=== PATIENT | male | born 1955 | race Caucasian/White ===

== ENCOUNTER → 2019-01-19 | Outpatient (CLI) | payer MEDICARE ==
--- NOTE | 2019-01-19 18:19 | Diagnostic Imaging Report ---
PROCEDURE: US Bilateral lower extremity arterial. TECHNIQUE: Multiple real-time grayscale images are obtained through both lower extremity arterial systems with color Doppler imaging and color Doppler spectral analysis. INDICATION: Peripheral vascular disease. FINDINGS: Predominantly biphasic waveforms throughout both lower extremity arterial systems noted with exception of some triphasic waveforms in the right common femoral and superficial femoral artery. Velocities appear to be fairly symmetric bilaterally. No significant velocity elevation or high-grade stenosis is seen. There is no occlusion. No fluid collection or mass is seen IMPRESSION: Essentially unremarkable bilateral lower extremity arterial Doppler. Dictated by: Dictated on workstation # [id number]
== END ==
LOC: RAD FS 10:24
PROVIDERS: ATTEND Physician Assistant
DX: I73.9 Peripheral vascular disease, unspecified (principal)
CPT/HCPCS: 93925

== ENCOUNTER → 2019-08-24 | Outpatient (CLI) | payer MEDICARE ==
--- NOTE | 2019-08-24 16:18 | Diagnostic Imaging Report ---
INDICATION: Epigastric pain. TIME OF EXAM: 3:32 p.m. FINDINGS: Supine radiograph of the abdomen was obtained. Bowel gas pattern is nonobstructed. No pathologic calcifications are seen. IMPRESSION: No acute abnormality is detected. Dictated by: Dictated on workstation # [id number]
== END ==
LOC: RAD FS 15:25
PROVIDERS: ATTEND Nurse Practitioner Family
DX: R10.13 Epigastric pain (principal)
CPT/HCPCS: 74018

== ENCOUNTER 2021-05-09 12:30 | Emergency (ER) | payer OTHER, MEDICARE ==
[~2021-05-09] VITALS: Ht 175.2 cm; Wt 81.0 kg
[2021-05-09 12:30] VITALS: BP 148/71
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
== END 2021-05-09 13:04 | disposition home or self-care (01) ==
LOC: ER FS 12:30 → EDUNIT# 12:30 → ER FS 13:04
DX: S01.81XA Laceration without foreign body of other part of head, initial encounter (principal); V89.2XXA Person injured in unspecified motor-vehicle accident, traffic, initial encounter
CPT/HCPCS: 99283

== ENCOUNTER → 2023-03-19 | Outpatient (CLI) | payer MEDICARE, OTHER ==
[~2023-03-19] VITALS: Ht 175.3 cm; Wt 86.4 kg
[~2023-03-19] MED LIST: LIDOCAINE 1% INJ 10 ML VIAL INJ ONE
--- NOTE | 2023-03-19 17:14 | Diagnostic Imaging Report ---
INDICATION: Left lobe thyroid nodule. PROCEDURE: The patient presents for ultrasound-guided fine-needle aspiration. The patient was brought to the procedure room and placed on the table in the supine position. Ultrasound imaging of the left neck was performed to evaluate appropriate entry site. Left neck was then prepped and draped in the usual sterile fashion. A small amount of 1% lidocaine was utilized for local anesthesia. A total of 4 passes were made into the dominant solid echogenic nodule lower pole left lobe of the thyroid utilizing 25-gauge needles and fine needle aspiration technique. Needle was removed and hemostasis was obtained. Patient tolerated the procedure well and left the department in stable condition. IMPRESSION: Successful ultrasound guided fine needle aspiration of the dominant solid nodule, left lobe of the thyroid. Pathology results are currently pending. Dictated on workstation # [id number]
--- NOTE | 2023-03-19 17:18 | Diagnostic Imaging Report ---
INDICATION: Right thyroid nodule. The patient presents for fine-needle aspiration with ultrasound guidance. The patient was brought to the procedure room and placed on the table in the supine position. Ultrasound imaging of the right neck was performed to evaluate appropriate entry site. Right neck was prepped and draped in the usual sterile fashion. A small amount 1% lidocaine was utilized for local anesthesia. A total of 4 passes were made into the dominant solid nodule right lobe of the thyroid utilizing 25-gauge needles and fine-needle aspiration technique. Needle was removed and hemostasis was obtained. Patient tolerated the procedure well and left the department in stable condition. IMPRESSION: Successful ultrasound guided fine-needle aspiration of the dominant solid nodule right lobe of the thyroid. Pathology results are currently pending. Dictated on workstation # [id number]
== END ==
LOC: RAD 14:33
PROVIDERS: ATTEND Family Medicine
DX: E04.1 Nontoxic single thyroid nodule (principal)

== ENCOUNTER → 2023-04-24 | Outpatient (CLI) | payer MEDICARE | END | disposition home or self-care (01) | LOC: PREOP 06:42 | PROVIDERS: ATTEND Surgery | DX: Z01.818 Encounter for other preprocedural examination (principal) ==

== ENCOUNTER 2023-06-20 09:06 | Emergency (ER) | payer MEDICARE, MEDICAID ==
[~2023-06-20] VITALS: Ht 175.3 cm; Wt 75.7 kg
[2023-06-20] MEDS ORDERED: FAMOTIDINE 20 MG TABLET PO STA (09:22)
--- NOTE | 2023-06-20 09:26 | ED Abdominal Pain ---
General Chief Complaint: Abdominal/GI Problems Stated Complaint: ABD PAIN Source of Information: Patient Exam Limitations: No Limitations History of Present Illness Date Seen by Provider: Jun 20, 2023 Time Seen by Provider: 09:12 Initial Comments 68-year-old male with past medical history of diabetes coming in due to abdominal pain. He also states has been constipated during the same time. This has been going on for the past month, worsening over the past couple of days. Had an episode of nonbloody nonbilious vomiting a few days ago with some mild nausea now. Eating actually seems to make the pain better sometimes. He had a bowel movement yesterday which did not really change the pain. He has never had pain like this before and denies any history of abdominal surgeries. He does have prostate issues he states and urinates frequently. He is concerned with how much he is having to urinate, so he recently started a medication that "makes him not have to pee as much". He is unsure what it is but it is [id number]. Allergies and Home Medications Allergies Coded Allergies: No Known Drug Allergies (Unverified , 05/09/21) Patient Home Medication List Home Medication List Reviewed: Yes Tamsulosin HCl (Flomax) 0.4 Mg Cap, 0.4 MG PO DAILY Prescribed by: STEVE SAEED on 06/20/23 1100 Review of Systems Review of Systems Constitutional: No fever Respiratory: No Symptoms Reported Cardiovascular: No Symptoms Reported Gastrointestinal: See HPI Genitourinary: No Symptoms Reported Musculoskeletal: no symptoms reported Skin: no symptoms reported Psychiatric/Neurological: No Symptoms Reported Endocrine: No Symptoms Reported Hematologic/Lymphatic: No Symptoms Reported All Other Systems Reviewed Negative Unless Noted: Yes Past Tcrrkgo-Vgnlih-Dgslhx Hx Patient Social History Tobacco Use?: Yes Tobacco type used: Cigars Substance use?: No Past Medical History Surgeries: No Physical Exam Vital Signs Vital Signs - First Documented 06/20/23 09:15 Temp 36.2 Pulse 81 Resp 18 B/P (MAP) 113/66 (82) O2 Delivery Room Air Capillary Refill : Height/Weight/BMI Height: '" Weight: lbs. oz. kg; 28.11 BMI Method: General Appearance: WD/WN, no apparent distress HEENT: PERRL/EOMI, normal ENT inspection, pharynx normal Neck: non-tender, full range of motion, supple, normal inspection Respiratory: chest non-tender, lungs clear, normal breath sounds, no respiratory distress, no accessory muscle use Cardiovascular: regular rate, rhythm Gastrointestinal: normal bowel sounds, soft; No distended, No guarding, No rebound; tenderness Extremities: normal range of motion, non-tender, normal inspection, no calf tenderness, normal capillary refill, pedal edema Neurologic/Psychiatric: no motor/sensory deficits, alert, normal mood/affect Skin: normal color, warm/dry Focused Exam Lactate Level 06/20/23 09:23: Lactic Acid Level 1.62 Lactic Acid Level Laboratory Tests Test 06/20/23 09:23 Lactic Acid Level 1.62 MMOL/L (0.50-2.00) Progress/Results/Core Measures Results/Orders Lab Results Laboratory Tests Test 06/20/23 09:23 06/20/23 11:12 Range/Units White Blood Count 7.7 4.3-11.0 10^3/uL Red Blood Count 4.48 4.30-5.52 10^6/uL Hemoglobin 13.3 13.3-17.7 g/dL Hematocrit 41 40-54 % Mean Corpuscular Volume 92 80-99 fL Mean Corpuscular Hemoglobin 30 25-34 pg Mean Corpuscular Hemoglobin Concent 32 32-36 g/dL Red Cell Distribution Width 13.2 10.0-14.5 % Platelet Count 253 130-400 10^3/uL Mean Platelet Volume 9.1 9.0-12.2 fL Immature Granulocyte % (Auto) 0 % Neutrophils (%) (Auto) 69 42-75 % Lymphocytes (%) (Auto) 21 12-44 % Monocytes (%) (Auto) 6 0-12 % Eosinophils (%) (Auto) 3 0-10 % Basophils (%) (Auto) 0 0-10 % Neutrophils # (Auto) 5.3 1.8-7.8 10^3/uL Lymphocytes # (Auto) 1.6 1.0-4.0 10^3/uL Monocytes # (Auto) 0.5 0.0-1.0 10^3/uL Eosinophils # (Auto) 0.2 0.0-0.3 10^3/uL Basophils # (Auto) 0.0 0.0-0.1 10^3/uL Immature Granulocyte # (Auto) 0.0 0.0-0.1 10^3/uL Prothrombin Time 13.5 12.2-14.7 SEC INR Comment 1.0 0.8-1.4 Activated Partial Thromboplast Time 29 24-35 SEC Sodium Level 138 135-145 MMOL/L Potassium Level 4.0 3.6-5.0 MMOL/L Chloride Level 100 98-107 MMOL/L Carbon Dioxide Level 27 21-32 MMOL/L Anion Gap 11 5-14 MMOL/L Blood Urea Nitrogen 9 7-18 MG/DL Creatinine 0.74 0.60-1.30 MG/DL Estimat Glomerular Filtration Rate 99 BUN/Creatinine Ratio 12 Glucose Level 194 H 70-105 MG/DL Lactic Acid Level 1.62 0.50-2.00 MMOL/L Calcium Level 9.4 8.5-10.1 MG/DL Corrected Calcium 9.6 8.5-10.1 MG/DL Magnesium Level 1.7 1.6-2.4 MG/DL Total Bilirubin 0.6 0.1-1.0 MG/DL Aspartate Amino Transf (AST/SGOT) 10 5-34 U/L Alanine Aminotransferase (ALT/SGPT) 9 0-55 U/L Alkaline Phosphatase 120 40-136 U/L C-Reactive Protein < 0.30 <0.50 MG/DL Total Protein 6.5 6.4-8.2 GM/DL Albumin 3.8 3.2-4.5 GM/DL Lipase 16 8-78 U/L Urine Color YELLOW Urine Clarity CLEAR Urine pH 6.0 5-9 Urine Specific [place] <=1.005 1.016-1.022 Urine Protein NEGATIVE NEGATIVE Urine Glucose (UA) 2+ H NEGATIVE Urine Ketones NEGATIVE NEGATIVE Urine Nitrite NEGATIVE NEGATIVE Urine Bilirubin NEGATIVE NEGATIVE Urine Urobilinogen 0.2 < = 1.0 MG/DL Urine Leukocyte Esterase NEGATIVE NEGATIVE Urine RBC (Auto) NEGATIVE NEGATIVE Urine RBC NONE /HPF Urine WBC NONE /HPF Urine Crystals NONE /LPF Urine Bacteria NEGATIVE /HPF Urine Casts NONE /LPF Urine Mucus NEGATIVE /LPF Urine Culture Indicated NO My Orders Orders - STEVE SAEED MD Ct Abdomen/Pelvis W (06/20/23 09:22) Cbc With Automated Diff (06/20/23 09:22) Comprehensive Metabolic Panel (06/20/23 09:22) Lactic Acid Analyzer (06/20/23 09:22) Lipase (06/20/23 09:22) Magnesium (06/20/23 09:22) Protime With Inr (06/20/23 09:22) Partial Thromboplastin Time (06/20/23 09:22) Ua Culture If Indicated (06/20/23 09:22) Crp Fs (06/20/23 09:22) Ed Iv/Invasive Line Start (06/20/23 09:22) Ondansetron Injection (Zofran Injectio (06/20/23 09:30) Acetaminophen Tablet (Acetaminophen Ta (06/20/23 09:30) Lidocaine 2% Viscous 15 Ml (Xylocaine Vi (06/20/23 09:30) Famotidine Tablet (Famotidine Tablet) (06/20/23 09:22) Antacid Suspension (Antacid Suspension (06/20/23 09:30) Iohexol Injection (Omnipaque 350 Mg/Ml 1 (06/20/23 10:00) Received Contrast (Hold Metformin- Contr (06/20/23 10:00) Ns (Ivpb) 100 Ml (Sodium Chloride 0.9% 1 (06/20/23 10:00) Medications Given in ED Current Medications Medications Dose Ordered Sig/Ivan Route Start Time Stop Time Status Last Admin Dose Admin Acetaminophen 1,000 mg ONCE ONCE PO 06/20/23 09:30 06/20/23 09:31 DC 06/20/23 09:30 1,000 MG Al Hydrox/Mg Hydrox/Simethicone 30 ml ONCE ONCE PO 06/20/23 09:30 06/20/23 09:31 DC 06/20/23 09:31 30 ML Iohexol 100 ml ONCE ONCE IV 06/20/23 10:00 06/20/23 10:01 DC 06/20/23 10:18 75 ML Lidocaine HCl 15 ml ONCE ONCE PO 06/20/23 09:30 06/20/23 09:31 DC 06/20/23 09:31 15 ML Ondansetron HCl 4 mg ONCE ONCE IVP 06/20/23 09:30 06/20/23 09:31 DC 06/20/23 09:30 4 MG Sodium Chloride 100 ml ONCE ONCE IV 06/20/23 10:00 06/20/23 10:01 DC 06/20/23 10:18 100 ML Vital Signs/I&O 06/20/23 09:15 Temp 36.2 Pulse 81 Resp 18 B/P (MAP) 113/66 (82) O2 Delivery Room Air Progress Progress Note : Progress Note 68-year-old male with above history coming in due to abdominal pain. ABCs were intact and vitals were stable on presentation. He has general abdominal pain, worse in the lower abdomen, but no signs of peritonitis. An IV was placed and basic labs were obtained and were significant for normal white blood cell count, normal creatinine, normal CRP, normal lactic acid, normal LFTs. CT abdomen pelvis negative for acute findings, bladder is distended even after he tried to go to the bathroom which is concerning. He does have some spinal changes as well which could be concerning for malignancy. 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 He states he does not believe he finished the treatments. I stressed that he needs to follow-up with his primary regarding this as soon as possible. In regards to his urinary retention, I am concerned he is taking aawm-oam-iaojjen medication that is likely making this worse. I will instruct him to stop this immediately. We placed a Ocasio with good urinary output. UA without infection. I will start him on Flomax and have him start with a urologist as an outpatient. Diagnostic Imaging Diagonstic Imaging: CT (abd/pelvis) Comments [facility]. [place], [place] NAME: MARIA DE JESUS DAVIS [facility] REC#: [id number] PT STATUS: REG ER : 1955 PHYSICIAN: STEVE SAEED MD ADMIT DATE: 06/20/23/ER FS Signed Date of Exam:06/20/23 CT ABDOMEN/PELVIS W EXAMINATION: CT abdomen and pelvis with intravenous contrast. TECHNIQUE: Multiple contiguous axial images were obtained through the abdomen and pelvis after the uneventful administration of intravenous contrast. All CT scans use one or more of the following dose optimizing techniques: automated exposure control, MA and/or KvP adjustment based on patient size and exam type or iterative reconstruction. HISTORY: LLQ pain, decreased bowel movements, vomiting COMPARISON: None available. FINDINGS: Lung bases: Bibasilar dependent atelectasis. Solid organs: The liver is normal without focal lesion. The gallbladder is normal. There is no biliary ductal dilation. Pancreas is normal. Spleen is normal. Adrenal glands are normal. The kidneys are normal without hydronephrosis. Bowel: The stomach and small bowel are normal without obstruction. The colon is normal. The appendix is normal. Peritoneum: There is no intraperitoneal free fluid or free air. No suspicious lymphadenopathy. Vasculature: Calcification of the aorta without aneurysm. Musculoskeletal: Heterogeneous appearance of the osseous structures. No compression fracture. Pelvis: The prostate gland is normal. There is bladder wall trabeculation. IMPRESSION: 1. No acute abnormality in the abdomen or pelvis. 2. Heterogeneous appearance of the osseous structures which is indeterminate and could be seen with osseous demineralization, neoplastic process or other metabolic disorder. Recommend correlation with patient history. Dictated by: Dictated on workstation # [id number] Dict: 06/20/23 1029 Trans: 06/20/23 1038 [id number] Interpreted by: GILDA DURHAM DO Electronically signed by: GILDA DURHAM DO 06/20/23 1038 Departure Impression Primary Impression: Urinary retention Disposition: 01 HOME, SELF-CARE Condition: Stable Departure-Patient Inst. Decision time for Depature: 11:20 Referrals: SUSHILA PONCE MD (PCP/Family) Primary Care Physician Patient Instructions: Urinary Retention (DC), How to Care for Your Ocasio Catheter, Male Add. Discharge Instructions: Your symptoms were because your bladder was full of urine and you were unable to get that out. We will start you with a new medication called tamsulosin that helps with the prostate and urinating. Please follow-up with a urologist, Dr. Champagne is the closest one to the area in [place]. His number is [phone]. You could also google any other provider you would like to see if you do not want to travel there. He also had some changes on the CT of your spine that could be cancer related. You had mentioned that you had cancer in your spine as a 21-year-old. Please follow-up with your regular doctor in regards to this, they may recommend advanced imaging to further investigate. Please stop the new vtjn-ltx-uoyuujm medicine you started for your urinary problem. We believe this is likely making the problem worse. Scripts Tamsulosin HCl (Flomax) 0.4 Mg Cap 0.4 MG PO DAILY for 30 Days, #30 CAP Prov: STEVE SAEED MD 06/20/23 STEVE SAEED MD Jun 20, 2023 09:26
[2023-06-20] MEDS ORDERED: ANTACID SUSPENSION 30 ML UDC PO ONE (09:30)
[2023-06-20] MEDS ORDERED: LIDOCAINE 2% VISCOUS 15 ML UDC PO ONE (09:30)
[2023-06-20] MEDS ORDERED: ACETAMINOPHEN 500 MG TABLET PO ONE (09:30)
[2023-06-20] MEDS ORDERED: ONDANSETRON 4 MG/2 ML (SDV) Z0FRAN IVP ONE (09:30)
[2023-06-20 09:35] LABS: BASOPHILS % (AUTO) 0 % (0-10); EOSINOPHILS # (AUTO) 0.2 10^3/uL (0.0-0.3); EOSINOPHILS % (AUTO) 3 % (0-10); HEMATOCRIT 41 % (40-54); HEMOGLOBIN 13.3 g/dL (13.3-17.7); LYMPHOCYTES # (AUTO) 1.6 10^3/uL (1.0-4.0); LYMPHOCYTES % (AUTO) 21 % (12-44); MEAN CORPUSCULAR HEMOGLOBIN 30 pg (25-34); MEAN CORPUSCULAR HGB CONC 32 g/dL (32-36); MEAN CORPUSCULAR VOLUME 92 fL (80-99); MEAN PLATELET VOLUME 9.1 fL (9.0-12.2); MONOCYTES # (AUTO) 0.5 10^3/uL (0.0-1.0); MONOCYTES % (AUTO) 6 % (0-12); NEUTROPHILS # (AUTO) 5.3 10^3/uL (1.8-7.8); NEUTROPHILS % (AUTO) 69 % (42-75); PLATELET COUNT 253 10^3/uL (130-400); WHITE BLOOD COUNT 7.7 10^3/uL (4.3-11.0)
[2023-06-20 09:53] LABS: ALANINE AMINOTRANSFERASE 9 U/L (0-55); ALBUMIN 3.8 GM/DL (3.2-4.5); ALKALINE PHOSPHATASE 120 U/L (40-136); BILIRUBIN,TOTAL 0.6 MG/DL (0.1-1.0); BUN/CREATININE RATIO 12; CALCIUM 9.4 MG/DL (8.5-10.1); CARBON DIOXIDE 27 MMOL/L (21-32); CHLORIDE 100 MMOL/L (98-107); CREATININE SERUM 0.74 MG/DL (0.60-1.30); GFR ESTIMATED 99; GLUCOSE 194 MG/DL (70-105); MAGNESIUM 1.7 MG/DL (1.6-2.4); SODIUM 138 MMOL/L (135-145); TOTAL PROTEIN 6.5 GM/DL (6.4-8.2)
[2023-06-20 09:54] LABS: LIPASE 16 U/L (8-78)
[2023-06-20 09:57] LABS: PROTHROMBIN TIME PATIENT 13.5 SEC (12.2-14.7)
[2023-06-20] MEDS ORDERED: NS 100 ML (IVPB) BAG IV ONE (10:00)
[2023-06-20] MEDS ORDERED: HOLD METFORMIN - RECEIVED CONTRAST 20 ML VIAL IV SCH (10:00)
[2023-06-20] MEDS ORDERED: IOHEXOL 350 MG/ML 100 ML (OMNIPAQUE 350) VIAL IV ONE (10:00)
--- NOTE | 2023-06-20 10:33 | Diagnostic Imaging Report ---
EXAMINATION: CT abdomen and pelvis with intravenous contrast. TECHNIQUE: Multiple contiguous axial images were obtained through the abdomen and pelvis after the uneventful administration of intravenous contrast. All CT scans use one or more of the following dose optimizing techniques: automated exposure control, MA and/or KvP adjustment based on patient size and exam type or iterative reconstruction. HISTORY: LLQ pain, decreased bowel movements, vomiting COMPARISON: None available. FINDINGS: Lung bases: Bibasilar dependent atelectasis. Solid organs: The liver is normal without focal lesion. The gallbladder is normal. There is no biliary ductal dilation. Pancreas is normal. Spleen is normal. Adrenal glands are normal. The kidneys are normal without hydronephrosis. Bowel: The stomach and small bowel are normal without obstruction. The colon is normal. The appendix is normal. Peritoneum: There is no intraperitoneal free fluid or free air. No suspicious lymphadenopathy. Vasculature: Calcification of the aorta without aneurysm. Musculoskeletal: Heterogeneous appearance of the osseous structures. No compression fracture. Pelvis: The prostate gland is normal. There is bladder wall trabeculation. IMPRESSION: 1. No acute abnormality in the abdomen or pelvis. 2. Heterogeneous appearance of the osseous structures which is indeterminate and could be seen with osseous demineralization, neoplastic process or other metabolic disorder. Recommend correlation with patient history. Dictated by: Dictated on workstation # [id number]
[2023-06-20] MEDS ORDERED: TMSL.4C PO (11:00)
[2023-06-20 11:15] LABS: BILIRUBIN,URINE NEGATIVE (NEGATIVE); CLARITY,URINE CLEAR; COLOR,URINE YELLOW; GLUCOSE, URINE (UA) 2+ (NEGATIVE); KETONES,URINE NEGATIVE (NEGATIVE); LEUKOCYTE ESTERASE ,URINE NEGATIVE (NEGATIVE); NITRITE,URINE NEGATIVE (NEGATIVE); PROTEIN,URINE NEGATIVE (NEGATIVE)
[2023-06-20 11:25] LABS: BACTERIA,URINE NEGATIVE /HPF
[2023-06-20 11:30] VITALS: BP 141/72
[2023-06-21] MEDS ORDERED: CIPR-226 PO (12:39)
== END 2023-06-20 11:30 | disposition home or self-care (01) ==
LOC: EDUNIT# 09:06 → ER FS 09:09
DX: R33.9 Retention of urine, unspecified (principal); F17.290 Nicotine dependence, other tobacco product, uncomplicated; Z28.310 Unvaccinated for COVID-19
CPT/HCPCS: 36415; 74177; 80053; 81000; 83605; 83690; 83735; 85025; 85610; 85730; 86141; Q9967

== ENCOUNTER 2023-06-21 12:00 | Emergency (ER) | payer MEDICARE, MEDICAID ==
[~2023-06-21] VITALS: Ht 175.3 cm; Wt 75.7 kg
[~2023-06-21 12:00] MED LIST changes: -LIDOCAINE 1% INJ 10 ML VIAL INJ ONE; +TMSL.4C PO
--- NOTE | 2023-06-21 12:29 | ED GU-Female ---
General Chief Complaint: - Reproductive Stated Complaint: CATH ISSUE Nursing Triage Note: Patient reports he began having blood in his urine after having a catheter placed in the ED yesterday. Source: patient, RN notes reviewed, old records Exam Limitations: no limitations History of Present Illness Date Seen by Provider: Jun 21, 2023 Time Seen by Provider: 12:07 Initial Comments 68-year-old male patient with history of diabetes, hypertension, hyperlipidemia was seen in this emergency room yesterday and had Ocasio catheter placement with diagnosis of urinary retention. Patient stated his urine was bloody since yesterday afternoon and gradually getting worse and decided to come to ER. Patient denies fever and chills, abdominal pain, focal neurodeficit, nausea and vomiting. Patient did not take his home medication yesterday and today because was told to not take wyqy-cei-nodwxrq medication that he took for prevention of urination, but by mistake he did not take his home regular medication. Patient did not make appointment with urologist and called his primary care physician office today to make appointment. Patient stays at home by himself and his sister spent about 4 hours every day with him. Patient drove himself to the ER by himself. Patient is alert and oriented x3. Patient is slow to talk and responding to the question that according to ER RNs is the same he was yesterday. Allergies and Home Medications Allergies Coded Allergies: No Known Drug Allergies (Unverified , 05/09/21) Patient Home Medication List Home Medication List Reviewed: Yes Ciprofloxacin HCl (Cipro) 250 Mg Tablet, 250 MG PO Q12H Prescribed by: Allen guillen on 06/21/23 1239 Tamsulosin HCl (Flomax) 0.4 Mg Cap, 0.4 MG PO DAILY Prescribed by: STEVE SAEED on 06/20/23 1100 Review of Systems Review of Systems Constitutional: no symptoms reported EENTM: no symptoms reported Respiratory: no symptoms reported Cardiovascular: no symptoms reported Gastrointestinal: no symptoms reported Genitourinary: see HPI Musculoskeletal: no symptoms reported Skin: no symptoms reported Psychiatric/Neurological: See HPI Endocrine: No Symptoms Reported All Other Systemes Reviewed Negative Unless Noted: Yes Past Mgljgzm-Ybqcnk-Nrerbt Hx Patient Social History Tobacco Use?: No Use of E-Cig and/or Vaping dev: No Substance use?: No Alcohol Use?: No Pt feels they are or have been: No Past Medical History Surgeries: No Physical Exam Vital Signs Vital Signs - First Documented 06/21/23 12:07 Temp 37.2 Pulse 99 Resp 18 B/P (MAP) 135/57 (83) Pulse Ox 95 O2 Delivery Room Air Capillary Refill : Less Than 3 Seconds Height, Weight, BMI Height: '" Weight: lbs. oz. kg; 24.00 BMI Method: General Appearance: WD/WN, no apparent distress HEENT: PERRL/EOMI, normal ENT inspection, pharynx normal Neck: non-tender, full range of motion, supple, normal inspection Cardiovascular: normal peripheral pulses, regular rate, rhythm Respiratory: chest non-tender, lungs clear, normal breath sounds Gastrointestinal: normal bowel sounds, non tender, soft Genital/Rectal: other (Ocasio catheter in place with mild bloody urine in the catheter) Back: normal inspection, no CVA tenderness Extremities: normal range of motion, non-tender, no calf tenderness Neurologic/Psychiatric: no motor/sensory deficits, alert, oriented x 3 Skin: normal color, warm/dry Progress/Results/Core Measures Suspected Sepsis SIRS Temperature: Pulse: 99 Respiratory Rate: 18 Blood Pressure 135 /57 Mean: 83 Results/Orders Lab Results Laboratory Tests Test 06/21/23 12:25 Range/Units Glucometer 236 H 70-110 MG/DL Vital Signs/I&O 06/21/23 06/21/23 12:07 12:46 Temp 37.2 37.2 Pulse 99 99 Resp 18 18 B/P (MAP) 135/57 (83) 135/57 Pulse Ox 95 95 O2 Delivery Room Air Room Air Capillary Refill : Less Than 3 Seconds Blood Pressure Mean: 83 Progress Note : Progress Note Patient with Ocasio catheter placement yesterday for urinary retention in this emergency room with extensive unremarkable evaluation including CT abdomen /pelvis who was advised to follow-up with urologist. Patient presented to ER and complaining of hematuria. Patient was confused about catheter care and did not take home medication and had blood sugar of 236 in ER. Urine was light bloody, possibly traumatized. Appointment with urologist for June 25 was made and patient and his sister was informed about needs to follow-up and appointment. Patient advised to take his home medication including diabetic medication. Patient advised to not try to change his catheter and only empty the bag. Patient advised to increase fluid intake. Patient's sister as his caregiver also informed about catheter care and following with appointment. Prescription for Cipro was given because of increased chance of infection after having a bloody urine. Departure Impression Primary Impression: Problem with Ocasio catheter Qualified Codes: T83.9XXA - Unspecified complication of genitourinary prosthetic device, implant and graft, initial encounter Additional Impressions: Hematuria Qualified Codes: R31.9 - Hematuria, unspecified Uncontrolled diabetes mellitus Qualified Codes: E11.65 - Type 2 diabetes mellitus with hyperglycemia Disposition: HOME, SELF-CARE Condition: Stable Departure-Patient Inst. Decision time for Depature: 12:37 Referrals: SUSHILA PONCE MD (PCP/Family) Primary Care Physician Patient Instructions: How to Prevent Catheter Associated Urinary Tract Infections, Diabetic Meal Planning Add. Discharge Instructions: Follow-up with Dr. Champagne urologist on June 25 Do not take any srls-qhn-xwnogpv medication Take your home medication as prescribed Do not try to change your catheter or bag, only empty your urine bag Follow-up with your primary care physician in 3 to 5 days Return to ER as needed All discharge instructions reviewed with patient and/or family. Voiced understanding. Scripts Ciprofloxacin HCl (Cipro) 250 Mg Tablet 250 MG PO Q12H, #10 TAB Prov: ALLEN GUILLEN MD 06/21/23 ALLEN GUILLEN MD Jun 21, 2023 12:29
[2023-06-21] MEDS ORDERED: CIPR-226 PO (12:39)
[2023-06-21 12:46] VITALS: BP 135/57
== END 2023-06-21 12:46 | disposition home or self-care (01) ==
LOC: EDUNIT# 12:00 → ER FS 12:01
DX: T83.098A Other mechanical complication of other urinary catheter, initial encounter (principal); R31.9 Hematuria, unspecified; E11.9 Type 2 diabetes mellitus without complications; Y82.9 Unspecified medical devices associated with adverse incidents
CPT/HCPCS: 82947

== ENCOUNTER 2023-06-23 09:58 | Emergency (ER) | payer MEDICARE, MEDICAID ==
[~2023-06-23 09:58] MED LIST changes: +CIPR-226 PO
== END 2023-06-23 10:09 | disposition left against medical advice (07) ==
LOC: EDUNIT# 09:58 → ER FS 09:59
DX: T85.9XXA Unspecified complication of internal prosthetic device, implant and graft, initial encounter (principal)

== ENCOUNTER 2023-07-04 13:31 | Observation (INO) | payer MEDICARE, MEDICAID ==
[~2023-07-04] VITALS: Ht 175 cm; Wt 73.0 kg
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
[2023-07-04 13:57] LABS: BASOPHILS % (AUTO) 0 % (0-10); EOSINOPHILS # (AUTO) 0.4 10^3/uL (0.0-0.3); EOSINOPHILS % (AUTO) 3 % (0-10); HEMATOCRIT 39 % (40-54); HEMOGLOBIN 12.7 g/dL (13.3-17.7); LYMPHOCYTES # (AUTO) 1.2 10^3/uL (1.0-4.0); LYMPHOCYTES % (AUTO) 11 % (12-44); MEAN CORPUSCULAR HEMOGLOBIN 30 pg (25-34); MEAN CORPUSCULAR HGB CONC 33 g/dL (32-36); MEAN CORPUSCULAR VOLUME 92 fL (80-99); MEAN PLATELET VOLUME 9.3 fL (9.0-12.2); MONOCYTES # (AUTO) 0.5 10^3/uL (0.0-1.0); MONOCYTES % (AUTO) 5 % (0-12); NEUTROPHILS # (AUTO) 8.5 10^3/uL (1.8-7.8); NEUTROPHILS % (AUTO) 80 % (42-75); PLATELET COUNT 368 10^3/uL (130-400); WHITE BLOOD COUNT 10.6 10^3/uL (4.3-11.0)
[2023-07-04] MEDS ORDERED: NS IV 500 ML 500 ML IV ONE (14:00)
[2023-07-04 14:13] LABS: ALANINE AMINOTRANSFERASE 13 U/L (0-55); ALBUMIN 3.6 GM/DL (3.2-4.5); ALKALINE PHOSPHATASE 117 U/L (40-136); BILIRUBIN,TOTAL 0.5 MG/DL (0.1-1.0); BUN/CREATININE RATIO 11; CALCIUM 9.5 MG/DL (8.5-10.1); CARBON DIOXIDE 27 MMOL/L (21-32); CHLORIDE 101 MMOL/L (98-107); CREATININE SERUM 1.05 MG/DL (0.60-1.30); GFR ESTIMATED 78; GLUCOSE 255 MG/DL (70-105); MAGNESIUM 1.5 MG/DL (1.6-2.4); POTASSIUM 4.7 MMOL/L (3.6-5.0); SODIUM 139 MMOL/L (135-145); TOTAL PROTEIN 6.4 GM/DL (6.4-8.2)
[2023-07-04 14:15] LABS: INR 1.1 (0.8-1.4); PROTHROMBIN TIME PATIENT 14.4 SEC (12.2-14.7)
--- NOTE | 2023-07-04 14:18 | Diagnostic Imaging Report ---
INDICATION: Chest pain with weakness and dyspnea. TECHNIQUE: A single AP view of the chest was obtained. COMPARISON: No previous study is available for comparison at this time. FINDINGS: The heart size and pulmonary vasculature are within normal limits. The lungs are clear bilaterally. IMPRESSION: Unremarkable chest. Dictated by: Dictated on workstation # [id number]
[2023-07-04 14:31] LABS: BACTERIA,URINE MODERATE /HPF; BILIRUBIN,URINE NEGATIVE (NEGATIVE); CLARITY,URINE CLOUDY; COLOR,URINE ORANGE; GLUCOSE, URINE (UA) NEGATIVE (NEGATIVE); KETONES,URINE NEGATIVE (NEGATIVE); LEUKOCYTE ESTERASE ,URINE 1+ (NEGATIVE); NITRITE,URINE NEGATIVE (NEGATIVE); PH,URINE 8.5 (5-9); PROTEIN,URINE 2+ (NEGATIVE); RBC,URINE >100 /HPF
[2023-07-04] MEDS ORDERED: MAGNESIUM 1 GM/100 ML IVPB 100 ML IV ONE (14:45)
[2023-07-04] MEDS ORDERED: cefTRIAXone IV/IM 1,000 MG in NS (IVPB) 50 ML 50 ML IV STA (14:50)
--- NOTE | 2023-07-04 14:52 | Cardiac Procedure Note-CS/ASA ---
Pre-Procedure Note Pre-Op Procedure Note Date of Available H&P: Jul 04, 2023 Date H&P Reviewed: Jul 04, 2023 Time H&P Reviewed: 14:52 History & Physical: H&P Reviewed, Patient Examed, No changes noted Pre-Operative Diagnosis: CHB Moderate Sedation PreProcedure Time 14:52 ASA Score 3 Airway Lungs Heart ASA score ASA 1: a normal healthy patient ASA 2: a patient with a mild systemic disease (mid diabetes, controlled hypertension, obesity ASA 3: a patient with a severe systemic disease that limits activity (angina, COPD, prior Myocardial infarction) ASA 4: a patient with an incapacitating disease that is a constant threat to life (CHF, renal failure) ASA 5: a moribund patient not expected to survive 24 hrs. (ruptured aneurysm) ASA 6: a declared brain- patient whose organs are being harvested. For emergent operations, add the letter E after the classification Mallampati Classification Grade 3 Sedation Plan Analgesia, Amnesia, Plan communicated to team members, Discussed options with patient/fam, Discussed risks with patient/fam The patient is an appropriate candidate to undergo the planned procedure, sedation, and anesthesia. The patient immediately re-assessed prior to indication. FLORIDALMA SCHMIDT MD Jul 04, 2023 14:52
--- NOTE | 2023-07-04 14:52 | Consultation-Cardiology ---
HPI-Cardiology Cardiology Consultation Date of Consultation 07/04/23 Date of Admission Time Seen by Provider: 15:07 Indication: Symptomatic bradycardia HPI 68-year-old gentleman with history of hypertension maintained on lisinopril, has been having generalized weakness and fatigue and multiple syncope. Came into the emergency room and noted to be in severe bradycardia with complete heart block. On my evaluation was laying down in bed. Still bradycardic. Home Medications & Allergies Allergies: Coded Allergies: No Known Drug Allergies (Unverified , 05/09/21) Home Medication List Reviewed: Yes AGE-Zkfizl-Odoiua Hx Patient Social History Marital Status: Employed/Student: retired Alcohol Use?: No Past Medical History Discussed below Family Medical History Significant Family History: No Pertinent Family Hx Review of Systems-General Review of Systems Constitutional: no symptoms reported, see HPI, dizziness, malaise, weakness EENTM: see HPI, no symptoms reported Respiratory: no symptoms reported, see HPI Cardiovascular: see HPI; No chest pain, No edema, No Hx of Intervention, No palpitations; syncope; No vascular heart diseas, No other Gastrointestinal: no symptoms reported, see HPI Genitourinary: no symptoms reported, see HPI Musculoskeletal: no symptoms reported, see HPI Skin: no symptoms reported, see HPI Psychiatric/Neurological: No Symptoms Reported, See HPI Reviewed Test Results Reviewed Test Results Lab Laboratory Tests Test 07/04/23 13:40 07/04/23 13:41 07/04/23 13:49 07/04/23 14:01 Range/Units White Blood Count 10.6 4.3-11.0 10^3/uL Red Blood Count 4.25 L 4.30-5.52 10^6/uL Hemoglobin 12.7 L 13.3-17.7 g/dL Hematocrit 39 L 40-54 % Mean Corpuscular Volume 92 80-99 fL Mean Corpuscular Hemoglobin 30 25-34 pg Mean Corpuscular Hemoglobin Concent 33 32-36 g/dL Red Cell Distribution Width 13.4 10.0-14.5 % Platelet Count 368 130-400 10^3/uL Mean Platelet Volume 9.3 9.0-12.2 fL Immature Granulocyte % (Auto) 1 % Neutrophils (%) (Auto) 80 H 42-75 % Lymphocytes (%) (Auto) 11 L 12-44 % Monocytes (%) (Auto) 5 0-12 % Eosinophils (%) (Auto) 3 0-10 % Basophils (%) (Auto) 0 0-10 % Neutrophils # (Auto) 8.5 H 1.8-7.8 10^3/uL Lymphocytes # (Auto) 1.2 1.0-4.0 10^3/uL Monocytes # (Auto) 0.5 0.0-1.0 10^3/uL Eosinophils # (Auto) 0.4 H 0.0-0.3 10^3/uL Basophils # (Auto) 0.0 0.0-0.1 10^3/uL Immature Granulocyte # (Auto) 0.1 0.0-0.1 10^3/uL Prothrombin Time 14.4 12.2-14.7 SEC INR Comment 1.1 0.8-1.4 Activated Partial Thromboplast Time 32 24-35 SEC Sodium Level 139 135-145 MMOL/L Potassium Level 4.7 3.6-5.0 MMOL/L Chloride Level 101 98-107 MMOL/L Carbon Dioxide Level 27 21-32 MMOL/L Anion Gap 11 5-14 MMOL/L Blood Urea Nitrogen 12 7-18 MG/DL Creatinine 1.05 0.60-1.30 MG/DL Estimat Glomerular Filtration Rate 78 BUN/Creatinine Ratio 11 Glucose Level 255 H 70-105 MG/DL Calcium Level 9.5 8.5-10.1 MG/DL Corrected Calcium 9.8 8.5-10.1 MG/DL Magnesium Level 1.5 L 1.6-2.4 MG/DL Total Bilirubin 0.5 0.1-1.0 MG/DL Aspartate Amino Transf (AST/SGOT) 11 5-34 U/L Alanine Aminotransferase (ALT/SGPT) 13 0-55 U/L Alkaline Phosphatase 117 40-136 U/L Myoglobin 110.1 H 10.0-92.0 NG/ML Troponin I < 0.028 <0.028 NG/ML Total Protein 6.4 6.4-8.2 GM/DL Albumin 3.6 3.2-4.5 GM/DL Glucometer 250 H 70-110 MG/DL Influenza Type A (RT-PCR) Not Detected Not Detecte Influenza Type B (RT-PCR) Not Detected Not Detecte SARS-CoV-2 RNA (RT-PCR) Not Detected Not Detecte Urine Color ORANGE Urine Clarity CLOUDY Urine pH 8.5 5-9 Urine Specific [place] 1.015 L 1.016-1.022 Urine Protein 2+ H NEGATIVE Urine Glucose (UA) NEGATIVE NEGATIVE Urine Ketones NEGATIVE NEGATIVE Urine Nitrite NEGATIVE NEGATIVE Urine Bilirubin NEGATIVE NEGATIVE Urine Urobilinogen 0.2 < = 1.0 MG/DL Urine Leukocyte Esterase 1+ H NEGATIVE Urine RBC (Auto) 3+ H NEGATIVE Urine RBC >100 H /HPF Urine WBC 10-25 H /HPF Urine Crystals NONE /LPF Urine Bacteria MODERATE H /HPF Urine Casts NONE /LPF Urine Mucus NEGATIVE /LPF Urine Culture Indicated YES Physical Exam Physical Exam Vital Signs Vital Signs - First Documented 07/04/23 13:36 Pulse 43 Resp 30 B/P (MAP) 120/43 (68) Pulse Ox 100 O2 Delivery Room Air Capillary Refill : Height, Weight, BMI Height: '" Weight: lbs. oz. kg; 23.00 BMI Method: General Appearance: No Apparent Distress, WD/WN Eyes: Bilateral Eye Normal Inspection, Bilateral Eye PERRL, Bilateral Eye EOMI HEENT: PERRL/EOMI, TMs Normal, Normal ENT Inspection, Pharynx Normal, Moist Mucous Membranes Neck: Full Range of Motion, Normal Inspection, Non Tender, Supple, Carotid Bruit Respiratory: Chest Non Tender, Normal Breath Sounds, No Accessory Muscle Use, No Respiratory Distress Cardiovascular: Regular Rate, Rhythm, No Edema, No Gallop, No JVD, No Murmur, Normal Peripheral Pulses Gastrointestinal: Normal Bowel Sounds, No Organomegaly, No Pulsatile Mass, Non Tender, Soft Back: Normal Inspection, No CVA Tenderness, No Vertebral Tenderness Extremity: Normal Capillary Refill, Normal Inspection, Normal Range of Motion, Non Tender, No Calf Tenderness, No Pedal Edema Neurologic/Psychiatric: Alert, Oriented x3, No Motor/Sensory Deficits, Normal Mood/Affect Skin: Normal Color, Warm/Dry Lymphatic: No Adenopathy A/P-Cardiology Admission Diagnosis Syncope Bradycardia Complete heart block Hypertension Assessment/Plan Symptomatic bradycardia Complete heart block Planning to proceed with dual-chamber pacemaker implantation Hypertension, maintained on lisinopril Not taking any beta-blockers or calcium channel blockers Discussed the management plan planning to proceed with pacemaker if then will monitor and manage blood pressure Generalized fatigue, secondary to bradycardia FLORIDALMA SCHMIDT MD Jul 04, 2023 14:52
[2023-07-04] MEDS ORDERED: ceFAZolin INJECTION 1,000 MG ONE (15:07)
[2023-07-04] MEDS ORDERED: HEParin (CATH LAB) 1,000 ML IV ONE (15:07)
[2023-07-04] MEDS ORDERED: NS IV 1000 ML 2,000 ML ONE (15:07)
[2023-07-04] MEDS ORDERED: LIDOCAINE 1% INJ 20 ML VIAL ONE (15:08)
[2023-07-04 15:43] VITALS: BP 107/45
[2023-07-04] MEDS ORDERED: fentaNYL INJECTION 100 MCG/2 ML VIAL ONE (16:04)
[2023-07-04] MEDS ORDERED: MIDAZOLAM INJ 5 MG/5 ML VIAL ONE (16:05)
[2023-07-04] MEDS ORDERED: meTOprolol INJECTION 5 MG/5 ML VIAL ONE (16:49)
[2023-07-04] MEDS ORDERED: NS IV 1000 ML 1,000 ML IV SCH (17:30)
[2023-07-04] MEDS ORDERED: PATIENT MAY USE OWN MEDS, ALL PO SCH (17:30)
--- NOTE | 2023-07-04 17:30 | Permanent Pacemaker Implant ---
Dual Chamber Pacemaker Implant PROCEDURE PHYSICIAN: Floridalma Mcbride DUAL CHAMBER PACEMAKER IMPLANTATION: DATE OF PROCEDURE: 07/04/23 REFERRING PHYSICIAN: Dr. Mary Vo INDICATION: Complete heart block PREOPERATIVE DIAGNOSIS: Severe bradycardia POSTOPERATIVE DIAGNOSIS: Complete heart block HISTORY: 68-year-old gentleman with recurrent syncope, intermittent complete heart block with severe bradycardia came into the emergency room, dual-chamber permanent pacemaker was recommended. PROCEDURE PERFORMED: 1. Dual-chamber permanent pacemaker implantation. 2. Fluoroscopy. 3. Central venous access. ANESTHESIA: Local anesthesia, conscious sedation. COMPLICATIONS: None. ESTIMATED BLOOD LOSS:20 mL. SPECIMENS: None. ORAL ANTICOAGULATION: None. FLUOROSCOPY TIME: FLUOROSCOPY DOSE: CONTRAST DOSE: PROCEDURE DETAILS: The patient is a 68 male and after all of the patients questions were answered, the patient was brought to the EP Lab. The patient's left chest was prepped and draped in sterile fashion. A 2 inch horizontal incision was made 1 cm below the clavicle and dissection carried down to the pectoralis fascia. Using the modified Seldinger technique and under fluoroscopy guidance, the anterior aspect of the left axillary vein was accessed 2 times. The J wires were secured to the drapes with a mosquito clamp. A 7-Palauan sheath was introduced over one of the J-wires. The RV lead was then inserted. The RV lead was directed across the tricuspid valve to the apical septal portion of the right ventricle. The position was checked in HONDURAN and SCHMIDT views. The screw was deployed and the lead connected to the community recreation programmer. Close sensing and pacing thresholds were obtained. Diaphragmatic pacing was ruled out. The lead was secured with 2-0 silk ties to the underlying muscle and fascia. Next, a 7-Palauan sheath was introduced through the remaining J-wire. An atrial lead was then introduced and guided to the level of the right appendage. The screw was deployed and the lead was connected to the interrogator. Good sensing and pacing thresholds were obtained. Diaphragmatic pacing was ruled out. The leads were secured with 2-0 silk ties to the underlying muscle and fascia. The leads were connected to the device in a hermetic fashion. The device and leads were placed in the pocket. Aggressive irrigation with saline solution was done. The device was secured to the underlying muscle and fascia with a 2-0 silk tie. interrogation of the device revealed good integrity of all the leads and good connections. The wound was then closed using 2 layers. The first layer was interrupted 2-0 absorbable Vicryl suture. The last layer was a single subcuticular layer with 4- 0 Vicryl suture. Half inch Steri-Strips and a small dressing were then applied to the wound. The patient tolerated the procedure well and was returned to the recovery room in stable condition with stable vital signs. DEVICE INFORMATION: VALENTINO XT MRI [id number] RA LEAD: [id number] RV LEAD: [id number] PER-OPERATIVE DEVICE INTERROGATION: Good sensing and capture IMMEDIATE POSTOPERATIVE DEVICE INTERROGATION: P wave 2.0 mV, impedance 418, pacing threshold 0.4 ms as 1.125 V R wave 6 mV, impedance 664, pacing threshold 0.4 ms at 0.875 V PLAN: The patient transferred to the ICU. We will continue with two more doses of IV antibiotics. We will check a chest x-ray and interrogate the device in the morning. The patient will continue on oral antibiotics for 5 days. CONCLUSION: Successful dual-chamber pacemaker implantation with no complication FINAL DIAGNOSIS: Complete heart block Severe bradycardia Hypertension FLORIDALMA MCBRIDE MD Jul 04, 2023 17:30
[2023-07-04] MEDS ORDERED: NS IV 1000 ML 1,000 ML ONE (18:00)
--- NOTE | 2023-07-04 18:16 | Diagnostic Imaging Report ---
EXAMINATION: Chest 1 view HISTORY: pacemaker COMPARISON: 07/04/2023 FINDINGS: The lungs are clear without edema or pneumonia. No pleural effusion or pneumothorax. Heart size is normal. Pacemaker is present with leads projecting over the right atrium and right ventricle. Patient's arm projects over the chest. IMPRESSION: 1. Clear lungs. Dictated by: Dictated on workstation # [id number]
[2023-07-04] MEDS ORDERED: NS IV 500 ML 500 ML IV PRN (18:45)
--- NOTE | 2023-07-04 19:31 | Tele-ICU Progress Note ---
Subjective Date Seen by a Provider: Jul 04, 2023 Subjective/Events-last exam This virtual visit was conducted using real time audio/video. Thank you for asking us to see this patient following pacemaker insertion for CHB. Recent events: PE: VSS. 70/min, NSR.O2 sat 98% on RA. HEENT: No obvious masses, adenopathy or JVD. Chest: clear to auscultation. CV: RRR S1 S2 No murmur or added sounds. Abd: Non-tender. Bowel sounds Y. : Unremarkable. Ocasio N. DIRECTOR NURSES' REGISTRY/psychiatric: Grossly intact. No obvious focal findings. Extremities: edema. Capillary refill < 3 seconds. Skin: unremarkable. Results: CXR: Clear. Available chart/ vitals / labs / images reviewed. Video assessment done using teleICU camera, rest of exam as per RN. A/P: Critical Care: critically ill patient. Cont.IVF, Ancef. Discussed with RN Cathryn. Asked RN to reach out to eICU if any questions or concerns later. Time spent with patient/coordination of care with other health professionals (mins): 15 Sepsis Event Evaluation Height, Weight, BMI Height: '" Weight: lbs. oz. kg; 23.00 BMI Method: Exam Exam Patient acknowledged, consented, and participated in this virtual visit which was conducted using real time audio/video Vital Signs Date Time Temp Pulse Resp B/P (MAP) Pulse Ox O2 Delivery O2 Flow Rate FiO2 07/04/23 18:15 69 07/04/23 18:15 67 114/65 (81) Room Air 07/04/23 15:43 36 20 107/45 97 Room Air 07/04/23 13:36 43 30 120/43 (68) 100 Room Air Height & Weight Height: '" Weight: lbs. oz. kg; 23.00 BMI Method: General Appearance: No Apparent Distress, WD/WN HEENT: PERRL/EOMI, Normal ENT Inspection, Other (Oropharynx somewhat dry) Neck: Normal Inspection; No Carotid Bruit, No JVD Respiratory: Lungs Clear, Normal Breath Sounds, No Accessory Muscle Use, No Respiratory Distress Cardiovascular: No Murmur, Bradycardia (Complete heart block on monitor), Other (Bilateral lower extremity edema) Extremity: Pedal Edema, Swelling (Bilateral lower extremity edema, left greater than right, stated is chronic and unchanged) Neurologic/Psychiatric: Alert, Oriented x3, Normal Mood/Affect, Other (Chronic left leg weakness) Skin: Normal Color, Warm/Dry Lymphatic: No Adenopathy Results Lab Laboratory Tests 07/04/23 13:40 Assessment/Plan Assessment/Plan See free text. Critical Care: Critically Ill Patient MARISA MARIEE MD Jul 04, 2023 19:31
[2023-07-04] MEDS: NS IV 1000 ML 1,000 ML IV SCH (19:46)
--- NOTE | 2023-07-04 19:50 | Tele-ICU Progress Note ---
Subjective Date Seen by a Provider: Jul 04, 2023 Subjective/Events-last exam !5 minutes spent on pt visit. Sepsis Event Evaluation Height, Weight, BMI Height: '" Weight: lbs. oz. kg; 23.00 BMI Method: Exam Exam Patient acknowledged, consented, and participated in this virtual visit which was conducted using real time audio/video Vital Signs Date Time Temp Pulse Resp B/P (MAP) Pulse Ox O2 Delivery O2 Flow Rate FiO2 07/04/23 18:15 69 07/04/23 18:15 67 114/65 (81) Room Air 07/04/23 15:43 36 20 107/45 97 Room Air 07/04/23 13:36 43 30 120/43 (68) 100 Room Air Height & Weight Height: '" Weight: lbs. oz. kg; 23.00 BMI Method: General Appearance: No Apparent Distress, WD/WN HEENT: PERRL/EOMI, Normal ENT Inspection, Other (Oropharynx somewhat dry) Neck: Normal Inspection; No Carotid Bruit, No JVD Respiratory: Lungs Clear, Normal Breath Sounds, No Accessory Muscle Use, No Respiratory Distress Cardiovascular: No Murmur, Bradycardia (Complete heart block on monitor), Other (Bilateral lower extremity edema) Extremity: Pedal Edema, Swelling (Bilateral lower extremity edema, left greater than right, stated is chronic and unchanged) Neurologic/Psychiatric: Alert, Oriented x3, Normal Mood/Affect, Other (Chronic left leg weakness) Skin: Normal Color, Warm/Dry Lymphatic: No Adenopathy Results Lab Laboratory Tests 07/04/23 13:40 Assessment/Plan Assessment/Plan See free text. Critical Care: Critically Ill Patient MARISA MARIEE MD Jul 04, 2023 19:50
[2023-07-05] MEDS: ceFAZolin INJECTION 1,000 MG in NS (IVPB) 50 ML 50 ML IV SCH ×2 (00:09→06:53)
[2023-07-05] MEDS: NS IV 1000 ML 1,000 ML IV SCH ×2 (03:35→12:10)
[2023-07-05 04:43] LABS: BASOPHILS % (AUTO) 0 % (0-10); EOSINOPHILS # (AUTO) 0.2 10^3/uL (0.0-0.3); EOSINOPHILS % (AUTO) 2 % (0-10); HEMATOCRIT 36 % (40-54); HEMOGLOBIN 11.9 g/dL (13.3-17.7); LYMPHOCYTES # (AUTO) 0.7 10^3/uL (1.0-4.0); LYMPHOCYTES % (AUTO) 5 % (12-44); MEAN CORPUSCULAR HEMOGLOBIN 30 pg (25-34); MEAN CORPUSCULAR HGB CONC 33 g/dL (32-36); MEAN CORPUSCULAR VOLUME 91 fL (80-99); MEAN PLATELET VOLUME 9.1 fL (9.0-12.2); MONOCYTES # (AUTO) 0.7 10^3/uL (0.0-1.0); MONOCYTES % (AUTO) 6 % (0-12); NEUTROPHILS # (AUTO) 10.3 10^3/uL (1.8-7.8); NEUTROPHILS % (AUTO) 86 % (42-75); PLATELET COUNT 316 10^3/uL (130-400)
[2023-07-05 05:01] LABS: ALBUMIN 3.2 GM/DL (3.2-4.5); BILIRUBIN,TOTAL 0.6 MG/DL (0.1-1.0); CALCIUM 8.6 MG/DL (8.5-10.1); CREATININE SERUM 0.96 MG/DL (0.60-1.30); POTASSIUM 4.7 MMOL/L (3.6-5.0); TOTAL PROTEIN 5.9 GM/DL (6.4-8.2)
[2023-07-05 05:17] LABS: EOSINOPHILS % (MANUAL) 2 %; LYMPHOCYTES % (MANUAL) 8 %; MONOCYTES % (MANUAL) 2 %; NEUTROPHILS % (MANUAL) 88 %; RBC MORPH NORMAL
[2023-07-05] MEDS ORDERED: MAGNESIUM 1 GM/100 ML IVPB 100 ML IV SCH (06:00)
[2023-07-05] MEDS ORDERED: POTASSIUM CHLORIDE 20 MEQ TABLET PO SCH (06:00)
[2023-07-05] MEDS ORDERED: POTASSIUM CL 10MEQ/50ML IVPB 50 ML IV SCH (06:00)
[2023-07-05 07:10] LABS: MAGNESIUM 1.5 MG/DL (1.6-2.4); PHOSPHORUS 2.6 MG/DL (2.3-4.7)
--- NOTE | 2023-07-05 08:11 | Tele-ICU Progress Note ---
Subjective Date Seen by a Provider: Jul 05, 2023 Time Seen by a Provider: 08:09 Subjective/Events-last exam [place] [facility] [address] [place] [address] Critical Care Progress Note Patient Name: Britni Cardenas I Unit Number: [id number] Date of : 03/05/1930 Patient Status: Admitted Inpatient Attending Doctor: Vale Faulkner DO Subjective Subjective Date Seen by a Provider: Jul 05, 2023 Time Seen by a Provider: 08:34 Subjective/Events-last exam (Tele-ICU Physician , Progress Note ) Service provided via interactive audio and video telecomVendormate E-CARE system to a patient admitted to ICU bed in [facility]. Patient is seen today due to persistent need of ICU care Available chart/ vitals / labs / Images reviewed Video assessment done using teleICU camera, rest of exam as per RN Discussed with RN Events overnight : Afebrile hemodynamically stable Respiratory - I/O = Drips: Continue to do well VS ok, Cr 1.88 improved Remains on IV Flagyl, po vanco for C diff, [toxin neg] Diarrhea is still present, rectal tube is in, less irritation breathing ok, Sepsis Event - Inpatient/Obs Sepsis Event Evaluation Height, Weight, BMI Height: 5'6.00" Weight: 160lbs. 0.0oz. 72.549302jq; 25.38 BMI Method:Stated Focused Exam Focused Exam Lactate Level 07/02/23 20:23: Lactic Acid Level 4.41*H 07/03/23 00:20: Lactic Acid Level 4.55*H 07/03/23 04:23: Lactic Acid Level 2.91*H Exam-Pulmonary/CC Exam Exam Patient acknowledged, consented, and participated in this virtual visit which was conducted using real time audio/video Vital Signs Date Time Temp Pulse Resp B/P (MAP) Pulse Ox O2 Delivery O2 Flow Rate FiO2 07/05/23 08:00 74 24 114/94 (101) 90 Room Air 07/05/23 07:00 73 07/05/23 07:00 72 17 153/97 (115) 94 Room Air 07/05/23 06:00 76 27 154/76 (102) 94 Room Air 07/05/23 05:00 70 22 148/66 (93) 93 Room Air 07/05/23 04:00 70 14 146/68 (94) 94 Room Air 07/05/23 04:00 97 Room Air 07/05/23 03:00 69 21 148/79 (102) 96 Room Air 07/05/23 02:00 66 24 145/67 (93) 94 Room Air 07/05/23 01:00 70 07/05/23 01:00 65 21 148/71 (96) 94 Room Air 07/05/23 00:00 36.2 Room Air 07/05/23 00:00 69 23 144/78 (100) 93 Room Air 07/04/23 23:54 98 Room Air 07/04/23 23:00 70 21 146/84 (104) 93 Room Air 07/04/23 22:00 71 26 136/66 (89) 93 Room Air 07/04/23 21:00 76 25 144/65 (91) 95 Room Air 07/04/23 20:00 75 27 145/89 (107) 95 Room Air 07/04/23 20:00 97 Room Air 07/04/23 20:00 36.1 Room Air 07/04/23 19:00 78 17 144/63 (90) 93 Room Air 07/04/23 19:00 80 07/04/23 18:35 91 Room Air 07/04/23 18:00 37.0 07/04/23 18:00 75 21 147/73 (97) 96 Room Air 07/04/23 17:00 67 31 146/73 (97) 93 Room Air 07/04/23 16:00 95 Nasal Cannula 2.00 07/04/23 16:00 63 19 143/72 (95) 94 Room Air 07/04/23 15:00 66 20 141/74 (96) 94 Room Air 07/04/23 14:00 64 17 143/70 (94) 95 Room Air 07/04/23 14:00 37.2 07/04/23 13:00 65 19 146/73 (97) 95 Room Air 07/04/23 13:00 66 07/04/23 12:00 95 Nasal Cannula 2.00 07/04/23 12:00 65 16 142/68 (92) 97 Room Air 07/04/23 11:00 60 17 128/57 (80) 96 Room Air 07/04/23 10:00 64 18 134/66 (88) 92 Room Air 07/04/23 10:00 37.4 07/04/23 09:12 36.4 61 93 21 07/04/23 09:00 63 18 147/72 (97) 92 Room Air I & O 07/05/23 06:59 Intake Total 2040 ml Output Total 2425 ml Balance -385 ml Height & Weight Height: 5'6.00" Weight: 160lbs. 0.0oz. 72.066192az; 25.38 BMI Method:Stated General Appearance: No Apparent Distress, WD/WN HEENT: PERRL/EOMI Neck: Non Tender, Supple Respiratory: Chest Non Tender, Lungs Clear, Other (on room air) Cardiovascular: Regular Rate, Rhythm, No Edema Gastrointestinal: normal bowel sounds, non tender, soft, no organomegaly, distended, other (hyperactive bowel sounds, slight distension) Extremity: No Calf Tenderness, Pedal Edema (mild, b/l), Other (Left arm erythematous, swollen, painful to touch or move, still has good pulse, right has bruising, good pulse) Neurologic/Psychiatric: Alert, Oriented x3 Skin: Warm/Dry, Ecchymosis (b/l forearms), Erythema (L arm) Lymphatic: No Adenopathy Results Lab Laboratory Tests 07/03/23 18:07 07/04/23 03:59 07/04/23 15:56 07/05/23 04:21 Assessment/Plan Assessment/Plan Assessment/Plan Continue to improve, rectal tube is helping irritation from diarrhea. Will need midline or PICC line for venous access renal function continue to improve Pt has nausea and eating fair, doing well with liquids, pt being seen by dietic karina Critical Care: Critically Ill Patient Time spent with patient (mins): 25 Problem List Diagnosis/Problems Copy To: Copy JOSAFAT GAY MD Jul 05, 2023 08:37 Had PPM inserted yesterday for CHB CXR yesterday ok, EKG this am shows paced rhythm, Appears capturing Sepsis Event Evaluation Height, Weight, BMI Height: '" Weight: lbs. oz. kg; 23.83 BMI Method: Exam Exam Patient acknowledged, consented, and participated in this virtual visit which was conducted using real time audio/video Vital Signs Date Time Temp Pulse Resp B/P (MAP) Pulse Ox O2 Delivery O2 Flow Rate FiO2 07/05/23 07:00 95 07/05/23 06:00 94 17 161/69 (99) 96 Room Air 07/05/23 05:00 98 10 139/64 (89) 96 Room Air 07/05/23 04:00 99 Room Air 07/05/23 04:00 97 12 147/68 (94) 97 Room Air 07/05/23 03:00 99 122/69 (86) 95 Room Air 07/05/23 02:00 94 95 Room Air 07/05/23 01:00 94 129/60 (83) 96 Room Air 07/05/23 01:00 100 07/05/23 00:00 98 Room Air 07/05/23 00:00 91 117/63 (81) 97 Room Air 07/04/23 23:00 92 127/66 (86) 96 Room Air 07/04/23 22:25 Room Air 07/04/23 22:00 80 20 119/59 (79) 98 Room Air 07/04/23 21:00 79 20 133/106 (115) 98 Room Air 07/04/23 20:15 77 13 119/66 (83) 98 Room Air 07/04/23 20:00 99 Room Air 07/04/23 19:45 77 13 119/67 (84) 100 Room Air 07/04/23 19:30 71 13 97/60 (72) 99 Room Air 07/04/23 19:15 70 110/58 (75) 96 Room Air 07/04/23 19:00 70 07/04/23 19:00 67 10 107/59 (75) 97 Room Air 07/04/23 18:30 97 Room Air 07/04/23 18:15 69 07/04/23 18:15 67 114/65 (81) Room Air 07/04/23 15:43 36 20 107/45 97 Room Air 07/04/23 13:36 43 30 120/43 (68) 100 Room Air I & O 07/05/23 07:00 Intake Total 2550 ml Output Total 800 ml Balance 1750 ml Height & Weight Height: '" Weight: lbs. oz. kg; 23.83 BMI Method: General Appearance: No Apparent Distress, WD/WN HEENT: PERRL/EOMI, Normal ENT Inspection, Other (Oropharynx somewhat dry) Neck: Normal Inspection; No Carotid Bruit, No JVD Respiratory: Lungs Clear, Normal Breath Sounds, No Accessory Muscle Use, No Respiratory Distress Cardiovascular: Regular Rate, Rhythm, No Murmur, Bradycardia (Complete heart block on monitor), Other (Bilateral lower extremity edema, paced rhytm) Extremity: Pedal Edema, Swelling (Bilateral lower extremity edema, left greater than right, stated is chronic and unchanged) Neurologic/Psychiatric: Alert, Oriented x3, Normal Mood/Affect, Other (Chronic left leg weakness) Skin: Normal Color, Warm/Dry Lymphatic: No Adenopathy Results Lab Laboratory Tests 07/04/23 13:40 07/05/23 04:27 Assessment/Plan Assessment/Plan s/p- PPM for CHB, appears working ok, possible discharge today Critical Care: Critically Ill Patient Time spent with patient (mins): 20 JOSAFAT GAY MD Jul 05, 2023 08:11
[2023-07-05] MEDS ORDERED: CEFU500T63 PO (08:54)
[2023-07-05] MEDS ORDERED: LISI5TAB20 PO (08:54)
--- NOTE | 2023-07-05 09:50 | Cardiology Progress Note ---
Subjective Date Seen by Provider: Jul 05, 2023 Time Seen by Provider: 09:49 Subjective/Events-last exam Patient was seen at bedside, site is healing well. No new complaint Review of Systems General: No Chills, No Night Sweats, No Fatigue, No Malaise, No Appetite, No Other HEENT: No Head Aches, No Visual Changes, No Eye Pain, No Ear Pain, No Dysphasia, No Sinus Congestion, No Post Nasal Drip, No Sore Throat, No Other Pulmonary: No Dyspnea, No Cough, No Pleuritic Chest Pain, No Other Cardiovascular: No: Chest Pain, Palpitations, Orthopnea, Paroxysmal Noc. Dyspnea, Edema, Lt Headedness, Other Objective-Cardiology Exam Last Set of Vital Signs Vital Signs 07/05/23 09:00 Pulse 87 Resp 11 Pulse Ox 99 O2 Delivery Room Air I&O Intake and Output 07/05/23 00:00 Intake Total 800 ml Output Total 450 ml Balance 350 ml Intake Oral 300 ml IV Total 500 ml Output Urine Total 450 ml Daily Weight Change No General: Alert, Oriented X3, Cooperative HEENT: Atraumatic, PERRLA Neck: Supple, No JVD, No Thyromegaly Lungs: Clear to Auscultation, Normal Air Movement Heart: Regular Rate, Normal S1, Normal S2, No Murmurs Abdomen: Normal Bowel Sounds, Soft, No Tenderness, No Hepatosplenomegaly, No Masses Extremities: No Clubbing, No Cyanosis, No Edema, Normal Pulses, No Tenderness/Swelling Skin: No Rashes, No Breakdown, No Significant Lesion Neuro: Normal Gait, Normal Speech, Strength at 5/5 X4 Ext, Normal Tone, Sensation Intact Psych/Mental Status: Mental Status NL, Mood NL Results Lab Laboratory Tests 07/04/23 13:40 07/05/23 04:27 A/P-Cardiology Admission Diagnosis Syncope Bradycardia Complete heart block Hypertension Assessment/Plan Symptomatic bradycardia Complete heart block Status post dual-chamber pacemaker implantation Pacemaker was evaluated today and good sensing and capture activity. He is currently pacemaker dependent Hypertension, maintained on lisinopril Restart lisinopril Diabetes mellitus, hyperglycemia, Managed by primary care team Generalized fatigue, secondary to bradycardia Patient was educated about pacemaker care, okay for discharge from cardiology standpoint and follow-up as an outpatient in 1 week for wound check FLORIDALMA SCHMIDT MD Jul 05, 2023 09:50
--- NOTE | 2023-07-05 11:04 | Discharge Summary ---
Discharge Summary Hospital Course Hospital Course Date of Admission: Jul 04, 2023 at 19:36 Admission Diagnosis : Family Physician/Provider: Ulises Zavala MD Date of Discharge: 07/05/23 Discharge Diagnosis: [ ] Hospital Course: [ ] Labs and Pending Lab Test: Laboratory Tests 07/04/23 13:40: White Blood Count 10.6, Red Blood Count 4.25L, Hemoglobin 12.7L, Hematocrit 39L, Mean Corpuscular Volume 92, Mean Corpuscular Hemoglobin 30, Mean Corpuscular Hemoglobin Concent 33, Red Cell Distribution Width 13.4, Platelet Count 368, Mean Platelet Volume 9.3, Immature Granulocyte % (Auto) 1, Neutrophils (%) (Auto) 80H, Lymphocytes (%) (Auto) 11L, Monocytes (%) (Auto) 5, Eosinophils (%) (Auto) 3, Basophils (%) (Auto) 0, Neutrophils # (Auto) 8.5H, Lymphocytes # (Auto) 1.2, Monocytes # (Auto) 0.5, Eosinophils # (Auto) 0.4H, Basophils # (Auto) 0.0, Immature Granulocyte # (Auto) 0.1, Prothrombin Time 14.4, INR Comment 1.1, Activated Partial Thromboplast Time 32, Sodium Level 139, Potassium Level 4.7, Chloride Level 101, Carbon Dioxide Level 27, Anion Gap 11, Blood Urea Nitrogen 12, Creatinine 1.05, Estimat Glomerular Filtration Rate 78, BUN/Creatinine Ratio 11, Glucose Level 255H, Calcium Level 9.5, Corrected Calcium 9.8, Magnesium Level 1.5L, Total Bilirubin 0.5, Aspartate Amino Transf (AST/SGOT) 11, Alanine Aminotransferase (ALT/SGPT) 13, Alkaline Phosphatase 117, Myoglobin 110.1H, Troponin I < 0.028, Total Protein 6.4, Albumin 3.6 07/04/23 13:41: Glucometer 250H 07/04/23 13:49: Influenza Type A (RT-PCR) Not Detected, Influenza Type B (RT-PCR) Not Detected, SARS-CoV-2 RNA (RT-PCR) Not Detected 07/04/23 14:01: Urine Color ORANGE, Urine Clarity CLOUDY, Urine pH 8.5, Urine Specific [place] 1.015L, Urine Protein 2+H, Urine Glucose (UA) NEGATIVE, Urine Ketones NEGATIVE, Urine Nitrite NEGATIVE, Urine Bilirubin NEGATIVE, Urine Urobilinogen 0.2, Urine Leukocyte Esterase 1+H, Urine RBC (Auto) 3+H, Urine RBC >100H, Urine WBC 10-25H, Urine Crystals NONE, Urine Bacteria MODERATEH, Urine Casts NONE, Urine Mucus NEGATIVE, Urine Culture Indicated YES 07/05/23 04:27: White Blood Count 12.0H, Red Blood Count 3.95L, Hemoglobin 11.9L, Hematocrit 36L , Mean Corpuscular Volume 91, Mean Corpuscular Hemoglobin 30, Mean Corpuscular Hemoglobin Concent 33, Red Cell Distribution Width 13.2, Platelet Count 316, Mean Platelet Volume 9.1, Immature Granulocyte % (Auto) 0, Neutrophils (%) (Auto) 86H, Lymphocytes (%) (Auto) 5L, Monocytes (%) (Auto) 6, Eosinophils (%) (Auto) 2, Basophils (%) (Auto) 0, Neutrophils # (Auto) 10.3H, Lymphocytes # (Auto) 0.7L, Monocytes # (Auto) 0.7, Eosinophils # (Auto) 0.2, Basophils # (Auto) 0.0, Immature Granulocyte # (Auto) 0.1, Neutrophils % (Manual) 88, Lymphocytes % (Manual) 8, Monocytes % (Manual) 2, Eosinophils % (Manual) 2, Blood Morphology Comment NORMAL, Sodium Level 140, Potassium Level 4.7, Chloride Level 106, Carbon Dioxide Level 23, Anion Gap 11, Blood Urea Nitrogen 11, Creatinine 0.96, Estimat Glomerular Filtration Rate 87, BUN/Creatinine Ratio 11, Glucose Level 339H, Calcium Level 8.6, Corrected Calcium 9.2, Phosphorus Level 2.6, Magnesium Level 1.5L, Total Bilirubin 0.6, Aspartate Amino Transf (AST/SGOT) 13, Alanine Aminotransferase (ALT/SGPT) 11, Alkaline Phosphatase 107, Total Protein 5.9L, Albumin 3.2, Triglycerides Level 175H, Cholesterol Level 107, LDL Cholesterol Direct 64, VLDL Cholesterol 35, HDL Cholesterol 20L Microbiology 07/04/23 Urine Culture - Preliminary, Resulted Staphylococcus species Home Meds Active Cefuroxime (Cefuroxime Axetil) 500 Mg Tablet 500 Mg PO BID Lisinopril 5 Mg Tablet 5 Mg PO DAILY Cipro (Ciprofloxacin HCl) 250 Mg Tablet 250 Mg PO Q12H Flomax (Tamsulosin HCl) 0.4 Mg Cap 0.4 Mg PO DAILY 30 Days Discharge Physical Examination Vital Signs Vital Signs Date Time Temp Pulse Resp B/P (MAP) Pulse Ox O2 Delivery O2 Flow Rate FiO2 07/05/23 10:01 98 Room Air 0.00 07/05/23 10:00 93 16 117/70 (86) Allergies: Coded Allergies: No Known Drug Allergies (Unverified , 05/09/21) Discharge Summary Date of Admission Jul 04, 2023 at 19:36 Date of Discharge Discharge Date: Jul 05, 2023 USMAN SINGLETON DO Jul 05, 2023 11:04
--- NOTE | 2023-07-05 11:08 | Short Stay Summary-Hospitalist ---
History of Present Illness HPI/Chief Complaint Chief complaint: Pacemaker placement for heart block HPI: this is a 68-year-old male who presented to the ICU with heart block in need of pacemaker placement. Patient had an uneventful hospital course. He will go home today. Source: patient, RN/MD, old records Exam Limitations: no limitations Date Seen 07/05/23 Time Seen by a Provider: 10:00 Attending Physician Ulises Zavala MD PCP Admitting Physician: Mary Vo MD Attending Physician: Vael Faulkner DO Referring Physician Date of Admission Jul 04, 2023 at 19:36 Home Medications & Allergies Home Medications Reviewed patient Home Medication Reconciliation performed by pharmacy medication reconciliations electronics maintenance technician and/or nursing. Patients Allergies have been reviewed. Allergies Allergies Coded Allergies No Known Drug Allergies (Unverified05/09/21) Past Uacyuef-Uvnkft-Xsodtf Hx Patient Social History Marrital Status: Employed/Student: retired Tobacco Use?: No Tobacco type used: Cigars Use of E-Cig and/or Vaping dev: No Substance use?: No Alcohol Use?: No Pt feels they are or have been: No Immunizations Up To Date Tetanus Booster (TDap): Unknown Current Status Advance Directives: No Communicates: Verbally Primary Language: Vincentian Preferred Spoken Language: Vincentian Implanted or Applied Medical D: Pacemaker Past Medical History Surgeries: Bladder Surgery Hypertension Benign Prostatic Hyperpl Diabetes, Non-Insulin dep Family Medical History No Pertinent Family Hx Review of Systems Constitutional: see HPI (j) Physical Exam Physical Exam Vital Signs Vital Signs - First Documented 07/04/23 07/05/23 13:36 10:01 Pulse 43 Resp 30 B/P (MAP) 120/43 (68) Pulse Ox 100 O2 Delivery Room Air O2 Flow Rate 0.00 Capillary Refill : Height, Weight, BMI Height: '" Weight: lbs. oz. kg; 23.83 BMI Method: General Appearance: No Apparent Distress, WD/WN, Chronically ill Eyes: Bilateral Eye Normal Inspection, Bilateral Eye PERRL, Bilateral Eye EOMI HEENT: PERRL/EOMI, Normal ENT Inspection, Other (Oropharynx somewhat dry) Neck: Normal Inspection; No Carotid Bruit, No JVD Respiratory: Lungs Clear, Normal Breath Sounds, No Accessory Muscle Use, No Respiratory Distress Cardiovascular: Regular Rate, Rhythm, No Murmur, Bradycardia (Complete heart block on monitor), Other (Bilateral lower extremity edema, paced rhytm) Gastrointestinal: Soft, Distended (Distended bladder), Tenderness (Tender over distended bladder) Back: Normal Inspection, No CVA Tenderness, No Vertebral Tenderness Extremity: Pedal Edema, Swelling (Bilateral lower extremity edema, left greater than right, stated is chronic and unchanged) Neurologic/Psychiatric: Alert, Oriented x3, Normal Mood/Affect, Other (Chronic left leg weakness) Skin: Normal Color, Warm/Dry Lymphatic: No Adenopathy Results Results/Procedures Labs Laboratory Tests 07/04/23 13:40 07/05/23 04:27 Patient resulted labs reviewed. Short Stay Diagnosis Discharge Diagnosis-Short Stay Admission Diagnosis Complete heart block Final Discharge Diagnosis Complete heart block requiring pacemaker placement Conclusion Plan Discharge home VALE FAULKNER DO Jul 05, 2023 11:08
== END 2023-07-05 14:51 | disposition home or self-care (01) ==
LOC: EDUNIT# 13:31 → ER 13:33 → SDC 15:46 → ICU 18:18 → SDC 19:36
PROVIDERS: ADMIT Family Medicine; ATTEND Internal Medicine
DX: I44.2 Atrioventricular block, complete (principal); R00.1 Bradycardia, unspecified; I10 Essential (primary) hypertension; R53.83 Other fatigue; R60.0 Localized edema; E11.65 Type 2 diabetes mellitus with hyperglycemia; N39.0 Urinary tract infection, site not specified; E83.42 Hypomagnesemia; F17.210 Nicotine dependence, cigarettes, uncomplicated; Z79.899 Other long term (current) drug therapy; Z79.84 Long term (current) use of oral hypoglycemic drugs
CPT/HCPCS: 33208; 36415; 71045; 80053; 80061; 81000; 82947; 83735; 83874; 84100; 84484; 85007; 85025; 85027; 85610; 85730; 87077; 87088; 87186; 87636; 93005; 93041; 96361; 96366; 96376

== ENCOUNTER → 2023-07-11 | Outpatient (CLI) | payer MEDICARE, MEDICAID ==
[~2023-07-11] MED LIST changes: +ATOR80TA76 PO; +CEFU500T63 PO; +GABA300C PO; +LISI5TAB20 PO; +LOSA25TA41 PO; +METF-399 PO
[2023-07-11 14:36] LABS: BASOPHILS % (AUTO) 0 % (0-10); EOSINOPHILS # (AUTO) 0.4 10^3/uL (0.0-0.3); EOSINOPHILS % (AUTO) 5 % (0-10); HEMATOCRIT 34 % (40-54); HEMOGLOBIN 11.1 g/dL (13.3-17.7); LYMPHOCYTES # (AUTO) 1.2 X 10^3 (1.0-4.0); LYMPHOCYTES % (AUTO) 14 % (12-44); MEAN CORPUSCULAR HEMOGLOBIN 29 pg (25-34); MEAN CORPUSCULAR HGB CONC 32 g/dL (32-36); MEAN CORPUSCULAR VOLUME 91 fL (80-99); MEAN PLATELET VOLUME 8.9 fL (9.0-12.2); MONOCYTES # (AUTO) 0.5 X 10^3 (0.0-1.0); MONOCYTES % (AUTO) 5 % (0-12); NEUTROPHILS # (AUTO) 6.5 X 10^3 (1.8-7.8); NEUTROPHILS % (AUTO) 75 % (42-75); PLATELET COUNT 368 10^3/uL (130-400); WHITE BLOOD COUNT 8.6 10^3/uL (4.3-11.0)
== END ==
LOC: LAB 14:17
PROVIDERS: ATTEND Internal Medicine Cardiovascular Disease
DX: R55 Syncope and collapse (principal); I10 Essential (primary) hypertension; E78.2 Mixed hyperlipidemia; I44.2 Atrioventricular block, complete; R50.9 Fever, unspecified; Z95.0 Presence of cardiac pacemaker
CPT/HCPCS: 36415; 85025; 87040

== ENCOUNTER 2023-07-15 08:27 | Observation (INO) | payer MEDICARE, MEDICAID ==
[~2023-07-15] VITALS: Ht 175 cm; Wt 72.7 kg
[~2023-07-15 08:27] MED LIST changes: -ATOR80TA76 PO; -GABA300C PO; -LOSA25TA41 PO; -METF-399 PO
--- NOTE | 2023-07-15 08:44 | ED General ---
General Chief Complaint: Cardiac/General Problems Stated Complaint: PACEMAKER ISSUES Source of Information: Patient, Family Exam Limitations: No Limitations History of Present Illness Date Seen by Provider: Jul 15, 2023 Time Seen by Provider: 08:30 Initial Comments 68-year-old male that recently he was diagnosed with complete heart block had a pacemaker placed on July 05 coming in due to general weakness, near syncope, and his pacemaker site began bleeding this morning. He noticed that it began swelling, bruising, and blood was on his shirt. Family brought him to the ER after they saw it this morning. He is unsure when it started doing this. He also just has general body aches and hurts "everywhere". Denies any real chest pain, shortness of breath, abdominal pain, nausea, vomiting, focal weakness or numbness. He has endorsed diarrhea for several days that has been nonbloody. Allergies and Home Medications Allergies Coded Allergies: No Known Drug Allergies (Unverified , 05/09/21) Patient Home Medication List Home Medication List Reviewed: Yes Cefuroxime Axetil (Cefuroxime) 500 Mg Tablet, 500 MG PO BID Prescribed by: FLORIDALMA MCBRIDE on 07/05/23 0854 Lisinopril (Lisinopril) 5 Mg Tablet, 5 MG PO DAILY Prescribed by: FLORIDALMA MCBRIDE on 07/05/23 0854 Tamsulosin HCl (Flomax) 0.4 Mg Cap, 0.4 MG PO DAILY Prescribed by: STEVE SAEED on 06/20/23 1100 Review of Systems Review of Systems Constitutional: malaise, weakness EENTM: no symptoms reported Respiratory: no symptoms reported Cardiovascular: see HPI Gastrointestinal: see HPI Skin: see HPI Past Csiwdht-Wsvjqd-Pegpom Hx Past Medical History Surgery/Hospitalization HX: DM Surgeries: Yes Bladder Surgery, Pacemaker Respiratory: No Cardiac: No Hypertension Neurological: Yes (Chronic left lower extremity weakness) Genitourinary: No Benign Prostatic Hyperpl Gastrointestinal: No Musculoskeletal: Yes (Chronic left lower extremity preventing ambulation) Endocrine: Yes Diabetes, Non-Insulin dep HEENT: No Cancer: No Psychosocial: No Integumentary: No Family Medical History No Pertinent Family Hx Physical Exam Vital Signs Vital Signs - First Documented 07/15/23 08:30 Temp 36.7 Pulse 98 Resp 15 B/P (MAP) 120/59 (79) Pulse Ox 97 Capillary Refill : Height, Weight, BMI Height: '" Weight: lbs. oz. kg; 23.83 BMI Method: General Appearance: Other (pale, ill appearing but not toxic) Eyes: Bilateral Eye Normal Inspection, Bilateral Eye PERRL HEENT: PERRL/EOMI, Normal ENT Inspection, Pharynx Normal Neck: Full Range of Motion, Normal Inspection, Non Tender, Supple Respiratory: Lungs Clear, Normal Breath Sounds, No Accessory Muscle Use, No Respiratory Distress, Other (pacemaker site with bruising, swelling, fresh dry blood on his chest) Cardiovascular: Regular Rate, Rhythm, No Edema, Normal Peripheral Pulses Gastrointestinal: Normal Bowel Sounds, Non Tender, Soft; No Distended, No Guarding Back: Normal Inspection, No CVA Tenderness Extremity: Normal Capillary Refill, Normal Inspection, Normal Range of Motion, Non Tender, No Calf Tenderness, No Pedal Edema Neurologic/Psychiatric: Alert, Oriented x3, No Motor/Sensory Deficits, Normal Mood/Affect Skin: Warm/Dry, Pallor Focused Exam Lactate Level 07/15/23 08:35: Lactic Acid Level 2.20*H Lactic Acid Level Laboratory Tests Test 07/15/23 08:35 Lactic Acid Level 2.20 MMOL/L (0.50-2.00) *H Progress/Results/Core Measures Suspected Sepsis SIRS Temperature: Pulse: Respiratory Rate: Laboratory Tests 07/15/23 08:35: White Blood Count 12.0H Blood Pressure / Mean: 07/15/23 08:35: Lactic Acid Level 2.20*H Laboratory Tests 07/15/23 08:35: Creatinine 1.00, INR Comment 1.1, Platelet Count 428H, Total Bilirubin 1.1H Results/Orders Lab Results Laboratory Tests Test 07/15/23 08:35 07/15/23 08:40 Range/Units White Blood Count 12.0 H 4.3-11.0 10^3/uL Red Blood Count 4.21 L 4.30-5.52 10^6/uL Hemoglobin 12.4 L 13.3-17.7 g/dL Hematocrit 38 L 40-54 % Mean Corpuscular Volume 91 80-99 fL Mean Corpuscular Hemoglobin 30 25-34 pg Mean Corpuscular Hemoglobin Concent 32 32-36 g/dL Red Cell Distribution Width 13.6 10.0-14.5 % Platelet Count 428 H 130-400 10^3/uL Mean Platelet Volume 8.8 L 9.0-12.2 fL Immature Granulocyte % (Auto) 1 % Neutrophils (%) (Auto) 73 42-75 % Lymphocytes (%) (Auto) 14 12-44 % Monocytes (%) (Auto) 7 0-12 % Eosinophils (%) (Auto) 6 0-10 % Basophils (%) (Auto) 0 0-10 % Neutrophils # (Auto) 8.8 H 1.8-7.8 10^3/uL Lymphocytes # (Auto) 1.6 1.0-4.0 10^3/uL Monocytes # (Auto) 0.8 0.0-1.0 10^3/uL Eosinophils # (Auto) 0.7 H 0.0-0.3 10^3/uL Basophils # (Auto) 0.0 0.0-0.1 10^3/uL Immature Granulocyte # (Auto) 0.1 0.0-0.1 10^3/uL Prothrombin Time 14.2 12.2-14.7 SEC INR Comment 1.1 0.8-1.4 Activated Partial Thromboplast Time 33 24-35 SEC Sodium Level 136 135-145 MMOL/L Potassium Level 4.1 3.6-5.0 MMOL/L Chloride Level 101 98-107 MMOL/L Carbon Dioxide Level 25 21-32 MMOL/L Anion Gap 10 5-14 MMOL/L Blood Urea Nitrogen 17 7-18 MG/DL Creatinine 1.00 0.60-1.30 MG/DL Estimat Glomerular Filtration Rate 82 BUN/Creatinine Ratio 17 Glucose Level 219 H 70-105 MG/DL Lactic Acid Level 2.20 *H 0.50-2.00 MMOL/L Calcium Level 9.6 8.5-10.1 MG/DL Corrected Calcium 9.8 8.5-10.1 MG/DL Magnesium Level 1.5 L 1.6-2.4 MG/DL Total Bilirubin 1.1 H 0.1-1.0 MG/DL Aspartate Amino Transf (AST/SGOT) 27 5-34 U/L Alanine Aminotransferase (ALT/SGPT) 17 0-55 U/L Alkaline Phosphatase 122 40-136 U/L Troponin I < 0.028 <0.028 NG/ML C-Reactive Protein High Sensitivity 2.01 H 0.00-0.50 MG/DL Total Protein 6.8 6.4-8.2 GM/DL Albumin 3.8 3.2-4.5 GM/DL Lipase 8 8-78 U/L Influenza Type A (RT-PCR) Not Detected Not Detecte Influenza Type B (RT-PCR) Not Detected Not Detecte SARS-CoV-2 RNA (RT-PCR) Not Detected Not Detecte Urine Color YELLOW Urine Clarity SLIGHTLY CLOUDY Urine pH 6.0 5-9 Urine Specific [place] >=1.030 1.016-1.022 Urine Protein 3+ H NEGATIVE Urine Glucose (UA) TRACE H NEGATIVE Urine Ketones 1+ H NEGATIVE Urine Nitrite NEGATIVE NEGATIVE Urine Bilirubin 1+ H NEGATIVE Urine Urobilinogen 0.2 < = 1.0 MG/DL Urine Leukocyte Esterase 1+ H NEGATIVE Urine RBC (Auto) 3+ H NEGATIVE Urine RBC TNTC H /HPF Urine WBC TNTC H /HPF Urine Squamous Epithelial Cells RARE /HPF Urine Crystals NONE /LPF Urine Bacteria MODERATE H /HPF Urine Casts NONE /LPF Urine Mucus SMALL H /LPF Urine Yeast FEW H /HPF Urine Culture Indicated CULTURE PENDING My Orders Orders - STEVE SAEED MD Cbc With Automated Diff (07/15/23 08:38) Comprehensive Metabolic Panel (07/15/23 08:38) Blood Culture (07/15/23 08:38) Urinalysis (07/15/23 08:38) Urine Culture (07/15/23 08:38) Protime With Inr (07/15/23 08:38) Partial Thromboplastin Time (07/15/23 08:38) Chest 1 View, Ap/Pa Only (07/15/23 08:38) Ed Iv/Invasive Line Start (07/15/23 08:38) Ekg Tracing (07/15/23 08:38) Troponin I [place] (07/15/23 08:38) Vital Signs Adult Sepsis Patie Q15M (07/15/23 08:38) O2 (07/15/23 08:38) Remove Rings In Anticipation O (07/15/23 08:38) Lactic Acid Analyzer (07/15/23 08:38) Influenza A And B By Pcr (07/15/23 08:38) Ns Iv 1000 Ml (Ns Iv 1000 Ml) (07/15/23 08:45) Hs C Reactive Protein (07/15/23 08:38) Covid 19 Inhouse Test (07/15/23 08:38) Magnesium (07/15/23 08:38) Lipase (07/15/23 08:38) Type And Screen (07/15/23 08:38) Straight Cath For Spec.-Adult (07/15/23 08:38) Fentanyl Injection (Fentanyl Injection (07/15/23 09:00) Cefepime Injection (Cefepime Injection) (07/15/23 09:45) Medications Given in ED Current Medications Medications Dose Ordered Sig/Ivan Route Start Time Stop Time Status Last Admin Dose Admin Fentanyl Citrate 50 mcg ONCE ONCE IVP 07/15/23 09:00 07/15/23 09:01 DC 07/15/23 09:04 50 MCG Vital Signs/I&O 07/15/23 08:30 Temp 36.7 Pulse 98 Resp 15 B/P (MAP) 120/59 (79) Pulse Ox 97 Capillary Refill : Progress Note : Progress Note 68-year-old male with above history coming in generally weak but also having bleeding from his pacemaker site. ABCs were intact and vitals were stable on presentation. Physical exam with a hematoma under his pacemaker, bruising looks old, there is some blood that looks like it was from today dried on his chest bleeding from the pacemaker site. An IV was placed and basic labs were obtained and were significant for a mildly elevated white blood cell count, mildly elevated lactic acid, negative troponin, normal creatinine, slightly elevated CRP. He was given a bolus of IV fluids as well as antibiotics. Straight cath was obtained and urine is concerning for infection despite him being on oral antibiotics at home. He does not appear septic with normal heart rate, not hypotensive, afebrile, and therefore was not given a full 20 cc/kg of IV fluids as of yet. I contacted Dr. Monson who admit him for IV antibiotics for his cystitis as well as monitoring his chest wound. I then contacted Dr. Mcbride for consultation. ECG Initial ECG Impression Date: Jul 15, 2023 Initial ECG Impression Time: 08:46 Initial ECG Rate: 91 Initial ECG Rhythm: Normal Sinus Comment Narrow QRS, normal axis, no STEMI Diagnostic Imaging Diagonstic Imaging: Xray (chest) Departure Impression Primary Impression: Cystitis Disposition: ADMITTED INPATIENT Condition: Stable Admissions Decision to Admit Reason: Admit from ER (General) Decision to Admit/Date: Jul 15, 2023 Time/Decision to Admit Time: 09:40 Departure-Patient Inst. Referrals: SUSHILA PONCE MD (PCP/Family) Primary Care Physician STEVE SAEED MD Jul 15, 2023 08:44
[2023-07-15] MEDS ORDERED: NS IV 1000 ML 1,000 ML IV SCH (08:45)
[2023-07-15 08:48] LABS: BASOPHILS % (AUTO) 0 % (0-10); EOSINOPHILS # (AUTO) 0.7 10^3/uL (0.0-0.3); EOSINOPHILS % (AUTO) 6 % (0-10); HEMATOCRIT 38 % (40-54); HEMOGLOBIN 12.4 g/dL (13.3-17.7); LYMPHOCYTES # (AUTO) 1.6 10^3/uL (1.0-4.0); LYMPHOCYTES % (AUTO) 14 % (12-44); MEAN CORPUSCULAR HEMOGLOBIN 30 pg (25-34); MEAN CORPUSCULAR HGB CONC 32 g/dL (32-36); MEAN CORPUSCULAR VOLUME 91 fL (80-99); MEAN PLATELET VOLUME 8.8 fL (9.0-12.2); MONOCYTES # (AUTO) 0.8 10^3/uL (0.0-1.0); MONOCYTES % (AUTO) 7 % (0-12); NEUTROPHILS # (AUTO) 8.8 10^3/uL (1.8-7.8); NEUTROPHILS % (AUTO) 73 % (42-75); PLATELET COUNT 428 10^3/uL (130-400)
[2023-07-15] MEDS ORDERED: fentaNYL INJECTION 100 MCG/2 ML VIAL IVP ONE (09:00)
[2023-07-15 09:13] LABS: INR 1.1 (0.8-1.4); PROTHROMBIN TIME PATIENT 14.2 SEC (12.2-14.7)
[2023-07-15 09:18] LABS: CLARITY,URINE SLIGHTLY CLOUDY; COLOR,URINE YELLOW; GLUCOSE, URINE (UA) TRACE (NEGATIVE); KETONES,URINE 1+ (NEGATIVE); NITRITE,URINE NEGATIVE (NEGATIVE); PROTEIN,URINE 3+ (NEGATIVE)
[2023-07-15 09:19] LABS: BILIRUBIN,URINE 1+ (NEGATIVE); LEUKOCYTE ESTERASE ,URINE 1+ (NEGATIVE)
[2023-07-15 09:19] LABS: ALANINE AMINOTRANSFERASE 17 U/L (0-55); ALBUMIN 3.8 GM/DL (3.2-4.5); ALKALINE PHOSPHATASE 122 U/L (40-136); BILIRUBIN,TOTAL 1.1 MG/DL (0.1-1.0); BUN/CREATININE RATIO 17; CALCIUM 9.6 MG/DL (8.5-10.1); CARBON DIOXIDE 25 MMOL/L (21-32); CHLORIDE 101 MMOL/L (98-107); GFR ESTIMATED 82; GLUCOSE 219 MG/DL (70-105); LIPASE 8 U/L (8-78); MAGNESIUM 1.5 MG/DL (1.6-2.4); POTASSIUM 4.1 MMOL/L (3.6-5.0); SODIUM 136 MMOL/L (135-145); TOTAL PROTEIN 6.8 GM/DL (6.4-8.2)
[2023-07-15 09:28] LABS: BACTERIA,URINE MODERATE /HPF; SQUAMOUS EPITHELIAL CELL,UR RARE /HPF; YEAST,URINE FEW /HPF
[2023-07-15 09:29] LABS: RBC,URINE TNTC /HPF; WBC,URINE TNTC /HPF
--- NOTE | 2023-07-15 09:38 | Diagnostic Imaging Report ---
CLINICAL INDICATION: Patient with increased weakness. EXAM: Portable chest x-ray, upright view. COMPARISON: Chest x-ray dated 07/04/2023. FINDINGS: Lungs/pleura: There is interval improved aeration of both lungs. The lungs are now clear. There is no pneumothorax. There is no pleural effusion. Mediastinum: Unremarkable. Pulmonary vasculature: Unremarkable. Heart: The heart size is within normal limits. Bones/extrathoracic soft tissue: Unremarkable. IMPRESSION: There is no radiographic evidence of acute cardiopulmonary process. Dictated by: Dictated on workstation # [id number]
[2023-07-15] MEDS ORDERED: CEFEPIME INJECTION 1,000 MG in NS (IVPB) 50 ML 50 ML IV ONE (09:45)
--- NOTE | 2023-07-15 10:15 | Consultation-Cardiology ---
HPI-Cardiology Cardiology Consultation Date of Consultation 07/15/23 Date of Admission Time Seen by Provider: 10:10 Indication: bleeding and swelling at PPM site HPI Patient is a 68 y/o male with history of SSS, HTN, HLP, DM, diabetic neuropathy. Had CHB and underwent PPM implantation on 07/05/23. Patient presented to ER with complaints in increased weakness and dizziness. Diagnosed with UTI. Noted to have hematoma at PPM site with dried blood on shirt and torso. Denies any chest pain or dyspnea. Does have abrasions on bilateral knees and admits to falling in shower several days ago. Denies syncope. Of note, was seen in our office for f/u on 07/11/23, PPM site at that time was D/D/I without erythema or drainage. He did have low grade fever at the time with questionable UTI and was started on Ceftin. Home Medications & Allergies Allergies: Coded Allergies: No Known Drug Allergies (Unverified , 05/09/21) Home Medication List Reviewed: Yes CGN-Zutjev-Oysadu Hx Patient Social History Smoking Status: Current Everyday Smoker Alcohol Use?: No Past Medical History CHB, HTN, HLP Family Medical History Significant Family History: No Pertinent Family Hx Review of Systems-General Review of Systems Constitutional: malaise, weakness EENTM: no symptoms reported Respiratory: no symptoms reported Cardiovascular: see HPI Gastrointestinal: see HPI Skin: see HPI Reviewed Test Results Reviewed Test Results Lab Laboratory Tests 07/15/23 08:35: White Blood Count 12.0H, Red Blood Count 4.21L, Hemoglobin 12.4L, Hematocrit 38L , Mean Corpuscular Volume 91, Mean Corpuscular Hemoglobin 30, Mean Corpuscular Hemoglobin Concent 32, Red Cell Distribution Width 13.6, Platelet Count 428H, Mean Platelet Volume 8.8L, Immature Granulocyte % (Auto) 1, Neutrophils (%) (Auto) 73, Lymphocytes (%) (Auto) 14, Monocytes (%) (Auto) 7, Eosinophils (%) (Auto) 6, Basophils (%) (Auto) 0, Neutrophils # (Auto) 8.8H, Lymphocytes # (Auto) 1.6, Monocytes # (Auto) 0.8, Eosinophils # (Auto) 0.7H, Basophils # (Auto) 0.0, Immature Granulocyte # (Auto) 0.1, Prothrombin Time 14.2, INR Comment 1.1, Activated Partial Thromboplast Time 33, Sodium Level 136, Potassium Level 4.1, Chloride Level 101, Carbon Dioxide Level 25, Anion Gap 10, Blood Urea Nitrogen 17, Creatinine 1.00, Estimat Glomerular Filtration Rate 82, BUN/Creatinine Ratio 17, Glucose Level 219H, Lactic Acid Level 2.20*H, Calcium Level 9.6, Corrected Calcium 9.8, Magnesium Level 1.5L, Total Bilirubin 1.1H, Aspartate Amino Transf (AST/SGOT) 27, Alanine Aminotransferase (ALT/SGPT) 17, Alkaline Phosphatase 122, Troponin I < 0.028, C-Reactive Protein High Sensitivity 2.01H, Total Protein 6.8, Albumin 3.8, Lipase 8, Influenza Type A (RT-PCR) Not Detected, Influenza Type B (RT-PCR) Not Detected, SARS-CoV-2 RNA (RT-PCR) Not Detected 07/15/23 08:40: Urine Color YELLOW, Urine Clarity SLIGHTLY CLOUDY, Urine pH 6.0, Urine Specific [place] >=1.030, Urine Protein 3+H, Urine Glucose (UA) TRACEH, Urine Ketones 1+H , Urine Nitrite NEGATIVE, Urine Bilirubin 1+H, Urine Urobilinogen 0.2, Urine Leukocyte Esterase 1+H, Urine RBC (Auto) 3+H, Urine RBC TNTCH, Urine WBC TNTCH, Urine Squamous Epithelial Cells RARE, Urine Crystals NONE, Urine Bacteria MODERATEH, Urine Casts NONE, Urine Mucus SMALLH, Urine Yeast FEWH, Urine Culture Indicated CULTURE PENDING Physical Exam Physical Exam Vital Signs Vital Signs - First Documented 07/15/23 07/15/23 08:30 10:14 Temp 36.7 Pulse 98 Resp 15 B/P (MAP) 120/59 (79) Pulse Ox 97 O2 Delivery Room Air Capillary Refill : Less Than 3 Seconds Height, Weight, BMI Height: '" Weight: lbs. oz. kg; 23.00 BMI Method: General Appearance: No Apparent Distress, WD/WN, Other (pale, ill appearing but not toxic) Eyes: Bilateral Eye Normal Inspection, Bilateral Eye PERRL HEENT: PERRL/EOMI, Normal ENT Inspection, Pharynx Normal Neck: Full Range of Motion, Normal Inspection, Non Tender, Supple Respiratory: Lungs Clear, Normal Breath Sounds, No Accessory Muscle Use, No Respiratory Distress, Other (pacemaker site with bruising, swelling, fresh dry blood on his chest) Cardiovascular: Regular Rate, Rhythm, No Edema, Normal Peripheral Pulses Gastrointestinal: Normal Bowel Sounds, Non Tender, Soft; No Distended, No Guarding Back: Normal Inspection, No CVA Tenderness Extremity: Normal Capillary Refill, Normal Inspection, Normal Range of Motion, Non Tender, No Calf Tenderness, No Pedal Edema Neurologic/Psychiatric: Alert, Oriented x3, No Motor/Sensory Deficits, Normal Mood/Affect Skin: Warm/Dry, Pallor A/P-Cardiology Admission Diagnosis Hematoma to pacemaker site UTI HTN HLP Assessment/Plan Hematoma to pacemaker site, cleaned around site, steri strips still in tact, no active bleeding at this time. Will apply compression dressing. Continue to monitor. UTI, started on antibiotic. Patient was seen for PPM f/u in our office on 07/11/23. Was having low grade fever, suspected UTI and started on Ceftin. Management per medical services. Status post syncope with symptomatic bradycardia Complete heart block Status post dual-chamber pacemaker implantation done on July 04, 2023 Good sensing and capture activity Hypertension, restart home blood pressure medications. Questionable intolerance to ALIDA-I with cough. Lisinopril was discontinued and started on losartan. Diabetes mellitus, followed and managed by primary care physician Hyperlipidemia, maintained on atorvastatin 80 mg daily, Diabetic neuropathy and myopathy, generalized weakness Patient is in a wheelchair Thank you for allowing us to participate in the management of Mr. Tam. This is Rajat Zarate PA-C, as a scribe for Dr. Mcbride Patient was seen and evaluated with Rajat, I interviewed and examined the patient, discussed the management plan and agree with the current scribed note In summary patient was admitted for generalized weakness and loss of energy, noted to have UTI, started on antibiotic Had a pacemaker implanted on July 11, 2023 noted to have a large hematoma, no pus discharge, there is some dried blood which was cleared around the area. I will place a compression dressing on it and continue to monitor closely, Aggressive IV antibiotic treatment is recommended RAJAT MENDENHALL Jul 15, 2023 10:15 FLORIDALMA MCBRIDE MD Jul 15, 2023 10:40
[2023-07-15 10:45] VITALS: BP 111/61
[2023-07-15] MEDS ORDERED: ACETAMINOPHEN 500 MG TABLET PO PRN (11:45)
[2023-07-15] MEDS ORDERED: ONDANSETRON INJECTION 4 MG/2 ML (SDV) IV PRN (11:45)
[2023-07-15 12:49] VITALS: BP 111/61
[2023-07-15] MEDS ORDERED: METF-399 PO (14:56)
[2023-07-15] MEDS ORDERED: LOSA25TA41 PO (14:56)
[2023-07-15] MEDS ORDERED: CEFU500T63 PO (14:56)
[2023-07-15] MEDS ORDERED: GABA300C PO (14:56)
[2023-07-15] MEDS ORDERED: TMSL.4C PO (14:56)
[2023-07-15] MEDS ORDERED: ATOR80TA76 PO (14:56)
[2023-07-15 15:16] VITALS: BP 120/58
--- NOTE | 2023-07-15 16:17 | History & Physical ---
SNEHA WHITTAKER 07/15/23 1616: HPI History of Present Illness: Patient presented to ED with weakness, dizziness, and bleeding over his pacemaker site. He had a PPM placed on July 05 due to complete heart block. He is unsure of when the bleeding and bruising started. Of note, patient was seen in Dr. Mcbride's office for f/u on 07/11/23, PPM site at that time was D/D/I without erythema or drainage. He did have low grade fever at the time with questionable UTI and was started on Ceftin. Endorses generalized malaise, myalgia, a few days of nonbloody diarrhea, urinary and fecal incontinence, and a month long cough. Denies chest pain, soa, abdominal pain, or nausea/vomiting. Brief ED Course: Patient had slight leukocytosis of 12. Platelets were increased at 428. Glucose high at 219. CRP increased at 2.01. Initial lactic acid was high at 2.2 with repeat lactic acid of .97. Chest X-Ray showed no radiographic evidence of acute cardiopulmonary process. UA showed 3+ protein, 1+ leukocyte esterase, WBC TNTC, moderate bacteria, and 3+ RBC. Source: patient Exam Limitations: physical impairment Date seen by provider: Jul 15, 2023 Time Seen by Provider: 16:20 Attending Physician Ulises Zavala MD PCP Admitting Physician: Shanti Lomeli MD Attending Physician: Shanti Lomeli MD Consult Date of Admission Jul 15, 2023 at 10:38 Home Medications Home Medications Reviewed patient Home Medication Reconciliation performed by pharmacy medication reconciliations weatherseal technician and/or nursing. Patients Allergies have been reviewed. Allergies Coded Allergies: No Known Drug Allergies (Unverified , 05/09/21) [id number] Hx Patient Social History Marrital Status: single Smoking Status: Current Everyday Smoker Alcohol Use?: No Tobacco type used: Cigarettes Immunizations Up To Date Influenza Vaccine Up-to-Date: No; Not Current Past Medical History Type II DM HTN, HLD, Diabetic neuropathy Family Medical History Significant Family History: No Pertinent Family Hx Review of Systems (CHC) Constitutional: see HPI EENTM: no symptoms reported Respiratory: cough Cardiovascular: see HPI Gastrointestinal: see HPI Genitourinary: see HPI Musculoskeletal: other (Lower extremity neuropathy) Skin: other (Redness and pain in inguinal, scrotal, and sacral areas. ) Psychiatric/Neurological: No Symptoms Reported Reviewed Test Results Reviewed Test Results Lab Laboratory Tests 07/15/23 08:35: White Blood Count 12.0H, Red Blood Count 4.21L, Hemoglobin 12.4L, Hematocrit 38L , Mean Corpuscular Volume 91, Mean Corpuscular Hemoglobin 30, Mean Corpuscular Hemoglobin Concent 32, Red Cell Distribution Width 13.6, Platelet Count 428H, Mean Platelet Volume 8.8L, Immature Granulocyte % (Auto) 1, Neutrophils (%) (Auto) 73, Lymphocytes (%) (Auto) 14, Monocytes (%) (Auto) 7, Eosinophils (%) (Auto) 6, Basophils (%) (Auto) 0, Neutrophils # (Auto) 8.8H, Lymphocytes # (Auto) 1.6, Monocytes # (Auto) 0.8, Eosinophils # (Auto) 0.7H, Basophils # (Auto) 0.0, Immature Granulocyte # (Auto) 0.1, Prothrombin Time 14.2, INR Comment 1.1, Activated Partial Thromboplast Time 33, Sodium Level 136, Potassium Level 4.1, Chloride Level 101, Carbon Dioxide Level 25, Anion Gap 10, Blood Urea Nitrogen 17, Creatinine 1.00, Estimat Glomerular Filtration Rate 82, BUN/Creatinine Ratio 17, Glucose Level 219H, Lactic Acid Level 2.20*H, Calcium Level 9.6, Corrected Calcium 9.8, Magnesium Level 1.5L, Total Bilirubin 1.1H, Aspartate Amino Transf (AST/SGOT) 27, Alanine Aminotransferase (ALT/SGPT) 17, Alkaline Phosphatase 122, Troponin I < 0.028, C-Reactive Protein High Sensitivity 2.01H, Total Protein 6.8, Albumin 3.8, Lipase 8, Influenza Type A (RT-PCR) Not Detected, Influenza Type B (RT-PCR) Not Detected, SARS-CoV-2 RNA (RT-PCR) Not Detected 07/15/23 08:40: Urine Color YELLOW, Urine Clarity SLIGHTLY CLOUDY, Urine pH 6.0, Urine Specific Herrick >=1.030, Urine Protein 3+H, Urine Glucose (UA) TRACEH, Urine Ketones 1+H , Urine Nitrite NEGATIVE, Urine Bilirubin 1+H, Urine Urobilinogen 0.2, Urine Leukocyte Esterase 1+H, Urine RBC (Auto) 3+H, Urine RBC TNTCH, Urine WBC TNTCH, Urine Squamous Epithelial Cells RARE, Urine Crystals NONE, Urine Bacteria MODERATEH, Urine Casts NONE, Urine Mucus SMALLH, Urine Yeast FEWH, Urine Culture Indicated CULTURE PENDING 07/15/23 10:26: Lactic Acid Level 0.97 Radiology Chest XRay: There is no radiographic evidence of acute cardiopulmonary process. Physical Exam-([facility]) Physical Exam Vital Signs VS - Last 72 Hours, by Label 07/15/23 07/15/23 07/15/23 07/15/23 08:30 10:14 10:45 11:00 Temp 36.7 36.1 Pulse 98 79 83 Resp 15 16 16 B/P (MAP) 120/59 (79) 115/56 111/61 (78) Pulse Ox 97 95 98 O2 Delivery Room Air Room Air Room Air 07/15/23 07/15/23 07/15/23 07/15/23 11:18 12:37 12:49 15:16 Temp 36.1 36.7 Pulse 80 86 86 90 Resp 16 18 B/P (MAP) 111/61 (78) 120/58 (78) Pulse Ox 98 96 O2 Delivery Room Air Room Air Capillary Refill : Less Than 3 Seconds General Appearance: moderate distress Respiratory: chest non-tender, no respiratory distress, no accessory muscle use, rhonchi (Expiratory rhonchi) Cardiovascular: regular rate, rhythm, no edema, no gallop, no JVD, no murmur Gastrointestinal: normal bowel sounds, non tender, soft, no organomegaly, no pulsatile mass Genital/Rectal: other (Diffuse inguinal, periurethral, and scrotal ertyhma extending to the sacrum. Sacral ulcer covered with dressing. ) Back: normal inspection Extremities: other (Bilateral lower extremity neuropathy. Bilateral knee abrasions. ) Skin: other (Diffuse inguinal, periurethral, and scrotal ertyhma extending to the sacrum. Sacral ulcer covered with dressing. ) Assessment/Plan Assessment/Plan Admission Status: Observation (1) Hematoma of left chest wall Status: Acute Assessment & Plan: - Hematoma around pacemaker site, cleaned around site, steri strips still in tact, no active bleeding at this time. - Will apply compression dressing. - Cardiology will continue to monitor. Qualifiers: Qualified Codes: S20.212A - Contusion of left front wall of thorax, initial encounter (2) UTI (urinary tract infection) Status: Acute Assessment & Plan: - WBC count of 12 upon admission - UA showed 3+ protein, 1+ leukocyte esterase, 3+ RBC, WBC TNTC, and moderate bacteria. - Lactic acid level of 2.2. Repeat levels were .97. - Patient was originally started on cefuroxime on 07/11 for suspected UTI. There has been no resolution of infection since this time. - Switched antibiotic from cefuroxime to cefepime. - Continue to monitor for signs of systemic infection - Pending blood cultures Qualifiers: Qualified Codes: N30.01 - Acute cystitis with hematuria (3) Urinary retention Status: Acute Assessment & Plan: - Patient had bladder US done with 400ml of postvoid residual. - This could be secondary to side effect from TURP procedure patient recently had performed vs urinary stricture vs UTI vs residual BPH - Ocasio catheter inserted for acute urinary retention. - Continue to monitor urinary output (4) Sacral decubitus ulcer Status: Chronic Assessment & Plan: - History of LE neuropathy secondary to uncontrolled T2DM leading to wheelchair dependance. - Lactic acid level of 2.2. Repeat levels were .97. - WBC count of 12 upon admission - Continue with wound care for sacral ulcer and monitor for signs of systemic infection - Pending blood cultures (5) Uncontrolled diabetes mellitus Status: Chronic Assessment & Plan: - Hold GRAPHIC USER INTERFACE DESIGNER Metformin - Started sliding scale insulin Qualifiers: Qualified Codes: E11.65 - Type 2 diabetes mellitus with hyperglycemia (6) Genital candidiasis in male Status: Chronic Assessment & Plan: - Topical miconazole powder ordered (7) HTN (hypertension) Status: Chronic Assessment & Plan: - Patient was started on lisinopril on 07/05 and this was subsequently switched to losartan due to possible dry cough associated with lisinopril. - Continue GRAPHIC USER INTERFACE DESIGNER losartan Qualifiers: Qualified Codes: I10 - Essential (primary) hypertension (8) HLD (hyperlipidemia) Status: Chronic Assessment & Plan: - Continue GRAPHIC USER INTERFACE DESIGNER atorvastatin Qualifiers: Qualified Codes: E78.5 - Hyperlipidemia, unspecified (9) Hyperbilirubinemia Status: Acute Assessment & Plan: - Bilirubin level of .6 on 07/05 and 1.1 today - Recheck bilirubin levels in the AM SHANTI LOMELI MD 07/15/23 6570: Home Medications Allergies Coded Allergies: No Known Drug Allergies (Unverified , 05/09/21) Physical Exam-([facility]) Physical Exam General Appearance: no apparent distress Respiratory: lungs clear Cardiovascular: regular rate, rhythm, no murmur, other (pressure dressing in place over left chest) Gastrointestinal: normal bowel sounds, non tender, soft Extremities: no pedal edema Neurologic/Psychiatric: alert, oriented x 3, other (flat affect) Supervisory-Addendum Brief Supervisory Addendum I personally performed or re-performed the history, physical exam and treatment for the E/M. I discussed the case with the Medical Student, and concur with the Medical Student documentation of history, physical exam and treatment plan unless otherwise noted. Please see my physical exam for my findings. He already had cares for his sacral area, did not examine at this time. SNEHA WHITTAKER Jul 15, 2023 16:16 SHANTI LOMELI MD Jul 15, 2023 18:39
[2023-07-15] MEDS: CEFEPIME 1,000 MG/NS 50 ML IVPB IV SCH ×4 (16:50→21:11)
[2023-07-15 19:32] VITALS: BP 130/60
[2023-07-15] MEDS: inSUlin ASPART 1 UNIT/0.01 ML (PER UNIT) SC SCH (21:11)
[2023-07-15] MEDS: MICONAZOLE 2% POWDER 90 GM TOP SCH (21:11)
[2023-07-15 23:09] VITALS: BP 121/65
[2023-07-16 03:21] VITALS: BP 114/68
[2023-07-16] MEDS: CEFEPIME 1,000 MG/NS 50 ML IVPB IV SCH ×4 (03:56→11:38)
[2023-07-16 05:14] LABS: BASOPHILS % (AUTO) 0 % (0-10); EOSINOPHILS # (AUTO) 0.5 10^3/uL (0.0-0.3); EOSINOPHILS % (AUTO) 6 % (0-10); HEMATOCRIT 32 % (40-54); HEMOGLOBIN 10.6 g/dL (13.3-17.7); LYMPHOCYTES # (AUTO) 1.1 10^3/uL (1.0-4.0); LYMPHOCYTES % (AUTO) 12 % (12-44); MEAN CORPUSCULAR HEMOGLOBIN 29 pg (25-34); MEAN CORPUSCULAR HGB CONC 33 g/dL (32-36); MEAN CORPUSCULAR VOLUME 89 fL (80-99); MONOCYTES # (AUTO) 0.7 10^3/uL (0.0-1.0); MONOCYTES % (AUTO) 8 % (0-12); NEUTROPHILS # (AUTO) 6.8 10^3/uL (1.8-7.8); NEUTROPHILS % (AUTO) 74 % (42-75); PLATELET COUNT 290 10^3/uL (130-400); WHITE BLOOD COUNT 9.2 10^3/uL (4.3-11.0)
[2023-07-16 05:38] LABS: ALBUMIN 3.1 GM/DL (3.2-4.5); BILIRUBIN,TOTAL 0.9 MG/DL (0.1-1.0); CALCIUM 8.7 MG/DL (8.5-10.1); CREATININE SERUM 0.74 MG/DL (0.60-1.30); POTASSIUM 4.2 MMOL/L (3.6-5.0); TOTAL PROTEIN 5.8 GM/DL (6.4-8.2)
[2023-07-16] MEDS: inSUlin ASPART 1 UNIT/0.01 ML (PER UNIT) SC SCH ×4 (05:41→20:45)
[2023-07-16 07:02] VITALS: BP 116/55
[2023-07-16] MEDS: GABAPENTIN 300 MG CAPSULE PO SCH (08:43)
[2023-07-16] MEDS: TAMSULOSIN 0.4 MG (FLOMAX) CAP PO SCH (08:43)
[2023-07-16] MEDS: LOSARTAN 25 MG TABLET PO SCH (08:44)
[2023-07-16] MEDS: MICONAZOLE 2% POWDER 90 GM TOP SCH ×2 (08:44→20:45)
--- NOTE | 2023-07-16 09:17 | Cardiology Progress Note ---
Subjective Date Seen by Provider: Jul 16, 2023 Time Seen by Provider: 08:20 Subjective/Events-last exam Patient is sitting up in bed, denies any chest pain or dyspnea. Focused Exam Lactate Level 07/15/23 08:35: Lactic Acid Level 2.20*H 07/15/23 10:26: Lactic Acid Level 0.97 Objective-Cardiology Exam Last Set of Vital Signs Vital Signs 07/16/23 07/16/23 07/16/23 07:02 07:31 08:15 Temp 36.6 Pulse 83 Resp 16 B/P (MAP) 116/55 (75) Pulse Ox 95 O2 Delivery Room Air I&O Intake and Output 07/16/23 00:00 Intake Total 1650 ml Output Total 1400 ml Balance 250 ml Intake Oral 650 ml IV Total 1000 ml Output Urine Total 1400 ml # Bowel Movements 1 Daily Weight Change No General: Alert, Oriented X3 HEENT: Atraumatic, PERRLA Lungs: Clear to Auscultation, Normal Air Movement Heart: Regular Rate Abdomen: Normal Bowel Sounds, Soft Skin: Other (hematoma to left chest wall around PPM site. Compression dressing in place) Results Lab Laboratory Tests 07/16/23 04:48 A/P-Cardiology Admission Diagnosis Hematoma to pacemaker site UTI HTN HLP Assessment/Plan Hematoma to pacemaker site, cleaned around site, steri strips still in tact, no active bleeding at this time. Compression dressing in place. Continue to monitor. UTI, started on antibiotic. Patient was seen for PPM f/u in our office on 07/11/23. Was having low grade fever, suspected UTI and started on Ceftin. Management per medical services. Status post syncope with symptomatic bradycardia Complete heart block Status post dual-chamber pacemaker implantation done on July 04, 2023 Good sensing and capture activity Hypertension, controlled, continue to monitor. Questionable intolerance to ALIDA-I with cough. Lisinopril was discontinued and started on losartan. Diabetes mellitus, followed and managed by primary care physician Hyperlipidemia, maintained on atorvastatin 80 mg daily, Diabetic neuropathy and myopathy, generalized weakness Patient is in a wheelchair Generalized debility/weakness Supervisory-Addendum Brief Supervisory Addendum Participated in pt care: history, MDM, physical Personally performed: exam, history, MDM Care discussed with: CELI Results interpretation: Verified all documentation Notes: Patient was seen and evaluated with Edith, examination performed, management plan was discussed, agree with the current scribed note, I made few changes to the note using Italic font Patient was seen at bedside, laying down comfortably, still having generalized weakness Has compression dressing on his pacemaker site Receiving antibiotic for his UTI Patient was noted to have decubitus ulcers, has generalized debility and weakness. Continue to monitor EDITH MENDENHALL Jul 16, 2023 09:17 FLORIDALMA SCHMIDT MD Jul 16, 2023 11:38
[2023-07-16 11:43] VITALS: BP 121/56
--- NOTE | 2023-07-16 13:12 | Progress Note ---
SNEHA WHITTAKER 07/16/23 1312: Subjective Subjective/Events-last exam Patient is resting comfortably in bed this morning. He has no concerns about his medical condition and says that he is feeling fine. Discharge plan was discussed with patient. Previously, he lived by himself and took care of bathing, cooking, and using the restroom. He says his sister comes to visit Saturday-Saturday for 4 hours each day. She helps him to do stuff around the house. He is eager to get discharged but he is not back to his baseline yet. Patient is willing to try a SNF if PT believes this is the best option for him. Focused Exam Lactate Level 07/15/23 08:35: Lactic Acid Level 2.20*H 07/15/23 10:26: Lactic Acid Level 0.97 Objective Exam Last Set of Vital Signs Vital Signs Date Time Temp Pulse Resp B/P (MAP) Pulse Ox O2 Delivery O2 Flow Rate FiO2 07/16/23 12:43 90 07/16/23 11:43 36.6 16 121/56 (77) 97 Room Air Capillary Refill : Less Than 3 Seconds I&O Intake and Output 07/16/23 00:00 Intake Total 1650 ml Output Total 1400 ml Balance 250 ml Intake Oral 650 ml IV Total 1000 ml Output Urine Total 1400 ml # Bowel Movements 1 Daily Weight Change No General: Alert, Oriented X3, Cooperative HEENT: Atraumatic Lungs: Other (Expiratory rhonchi) Heart: Regular Rate, Normal S1, Normal S2, No Murmurs Abdomen: Soft, No Tenderness, No Hepatosplenomegaly, No Masses, Other (Hypoactive bowel sounds) Extremities: No Clubbing, No Cyanosis, No Edema, Other (Bilateral lower extremity neuropathy. Bilateral knee abrasions. ) Skin: Other (Diffuse inguinal, periurethral, and scrotal ertyhma extending to the sacrum. Sacral ulcer covered with dressing.) Neuro: Other (Wheelchair bound. Lower extremity neuropathy. ) Psych/Mental Status: Mental Status NL, Mood NL Results/Procedures Lab Laboratory Tests 07/15/23 20:52: Glucometer 225H 07/16/23 04:48: White Blood Count 9.2, Red Blood Count 3.65L, Hemoglobin 10.6L, Hematocrit 32L, Mean Corpuscular Volume 89, Mean Corpuscular Hemoglobin 29, Mean Corpuscular Hemoglobin Concent 33, Red Cell Distribution Width 13.4, Platelet Count 290, Mean Platelet Volume 9.0, Immature Granulocyte % (Auto) 0, Neutrophils (%) (Auto) 74, Lymphocytes (%) (Auto) 12, Monocytes (%) (Auto) 8, Eosinophils (%) (Auto) 6, Basophils (%) (Auto) 0, Neutrophils # (Auto) 6.8, Lymphocytes # (Auto) 1.1, Monocytes # (Auto) 0.7, Eosinophils # (Auto) 0.5H, Basophils # (Auto) 0.0, Immature Granulocyte # (Auto) 0.0, Sodium Level 137, Potassium Level 4.2, Chloride Level 106, Carbon Dioxide Level 23, Anion Gap 8, Blood Urea Nitrogen 11, Creatinine 0.74, Estimat Glomerular Filtration Rate 99, BUN/Creatinine Ratio 15, Glucose Level 206H, Calcium Level 8.7, Corrected Calcium 9.4, Total Bilirubin 0.9, Aspartate Amino Transf (AST/SGOT) 16, Alanine Aminotransferase (ALT/SGPT) 15, Alkaline Phosphatase 99, Total Protein 5.8L, Albumin 3.1L 07/16/23 05:24: Glucometer 200H 07/16/23 10:39: Glucometer 247H Microbiology 07/15/23 Urine Culture - Final, Complete NO GROWTH Radiology Chest XRay: There is no radiographic evidence of acute cardiopulmonary process. Assessment/Plan Assessment/Plan Admission Status: Observation (1) UTI (urinary tract infection) Status: Acute Assessment & Plan: - WBC count of 12 upon admission - UA showed 3+ protein, 1+ leukocyte esterase, 3+ RBC, WBC TNTC, and moderate bacteria. - Lactic acid level of 2.2. Repeat levels were .97. - Patient was originally started on cefuroxime on 07/11 for suspected UTI. There has been no resolution of infection since this time. - Switched antibiotic from cefuroxime to IV cefepime on admission - Transitioning to oral ciprofloxacin 500mg BID for 7 days. - Continue to monitor for signs of systemic infection - No growth to date on urine cultures Qualifiers: Qualified Codes: N30.01 - Acute cystitis with hematuria (2) Hematoma of left chest wall Status: Acute Assessment & Plan: - Hematoma around pacemaker site, cleaned around site, steri strips still in tact, no active bleeding at this time. - Will apply compression dressing. - Cardiology will clear patient if his urine culture is negative. They want to perform blood cultures if there is a positive urine culture Qualifiers: Qualified Codes: S20.212A - Contusion of left front wall of thorax, initial encounter (3) Urinary retention Status: Acute Assessment & Plan: - Patient had bladder US done with 400ml of postvoid residual. - This could be secondary to side effect from TURP procedure patient recently had performed vs urinary stricture vs UTI vs residual BPH - Franco catheter inserted on 07/15 - Discontinued franco catheter and will perform another postvoid residual US scan to assess for urinary retention (4) Wheelchair dependent Status: Chronic Assessment & Plan: - Patient is wheelchair dependent due to uncontrolled diabetes mellitus type II - He is very weak is struggling to perform tasks in hospital - Consulted PT and will discuss his functional mobility after their assessment (5) Sacral decubitus ulcer Status: Chronic Assessment & Plan: - History of LE neuropathy secondary to uncontrolled T2DM leading to wheelchair dependance. - Lactic acid level of 2.2. Repeat levels were .97. - WBC count of 12 upon admission, decreased to 9.2 - Continue with wound care for sacral ulcer and monitor for signs of systemic infection (6) Genital candidiasis in male Status: Chronic Assessment & Plan: - Using topical miconazole powder (7) Uncontrolled diabetes mellitus Status: Chronic Assessment & Plan: - Hold TEST PREPARER Metformin - Started sliding scale insulin Qualifiers: Qualified Codes: E11.65 - Type 2 diabetes mellitus with hyperglycemia (8) HTN (hypertension) Status: Chronic Assessment & Plan: - Patient was started on lisinopril on 07/05 and this was subsequently switched to losartan due to possible dry cough associated with lisinopril. - Continue TEST PREPARER losartan Qualifiers: Qualified Codes: I10 - Essential (primary) hypertension (9) HLD (hyperlipidemia) Status: Chronic Assessment & Plan: - Continue TEST PREPARER atorvastatin Qualifiers: Qualified Codes: E78.5 - Hyperlipidemia, unspecified (10) Hyperbilirubinemia Status: Resolved Assessment & Plan: - Bilirubin level of .6 on 07/05 and 1.1 on 07/15 - Bilirubin levels normalized to .9 on 07/16 LUZ MARINA LOMELI MD 07/16/23 3798: Subjective Subjective/Events-last exam Pt states at home, he was using a urinal type container, did not have trouble with passing urine, only with aiming into the container. Objective Exam General: Alert, No Acute Distress Heart: Regular Rate, No Murmurs Abdomen: Normal Bowel Sounds, Soft, No Tenderness Extremities: No Edema Neuro: Normal Speech Psych/Mental Status: Mood NL Supervisory-Addendum Brief Supervisory Addendum I personally performed or re-performed the history, physical exam and treatment for the E/M. I discussed the case with the Medical Student, and concur with the Medical Student documentation of history, physical exam and treatment plan unless otherwise noted. See my physical exam for my findings. Will resume metformin. SNEHA WHITTAKER Jul 16, 2023 13:12 LUZ MARINA LOMELI MD Jul 16, 2023 18:54
--- NOTE | 2023-07-16 15:05 | Physical Therapy Evaluation ---
PT Evaluation-General Medical Diagnosis Admission Date Jul 15, 2023 at 10:38 Medical Diagnosis: Cystitis Onset Date: Jul 14, 2023 Therapy Diagnosis Therapy Diagnosis: Gait deficit, Strength deficit Precautions Precautions/Isolations: Fall Prevention, Standard Precautions Weight Bear Status Right Lower Extremity: Right Weight Bearing/Tolerated Left Lower Extremity: Left Weight Bearing/Tolerated Referral Physician: Dr. Monson Reason for Referral: Evaluation/Treatment Medical History Reviewed History: Yes Social History Home: Apartment Current Living Status: Alone Entry Into Home: Elevator Prior Prior Level of Function SCALE: Activities may be completed with or without assistive devices. 7-Hicqbzxuxj-gqpbajp completes the activity by him/herself with no assistance from a helper. 5-Set-up or Clean-up Assistance-helper sets up or cleans up; patient completes activity. [place] assists only prior to or following the activity. 4-Supervision or Touching Assistance-helper provides verbal cues and/or touching/steadying and/or contact guard assistance as patient completes activity. Assistance may be provided throughout the activity or intermittently. 3-Partial/Moderate Assistance-helper does LESS THAN HALF the effort. [place] lifts, holds or supports trunk or limbs, but provides less than half the effort. 2-Substantial/Maximal Assistance-helper does MORE THAN HALF the effort. [place] lifts or holds trunk or limbs and provides more than half the effort. 7-Fsfzvssio-qneswx does ALL the effort. Patient does none of the effort to complete the activity. Or, the assistance of 2 or more helpers is required for the patient to complete the activity. If activity was not attempted, code reason: 7-Patient Refused. 9-Not Applicable-not attempted and the patient did not perform the activity before the current illness, exacerbation or injury. 10-Not Attempted due to Environmental Limitations-(lack of equipment, weather restraints, etc.). 88-Not Attempted due to Medical Conditions or Safety Concerns. Bed Mobility: 6 Transfers (B,C,W/C): 6 Gait: 9 Indoor Mobility (Ambulation): Independent Stairs: Not [place] Prior Devices Use: Motorized scooter PT Evaluation-Current Subjective Patient lying supine in bed upon PT arrival, agreeable to treatment. Patient rates pain at 0/10. Objective Patient Orientation: Person, Place, Time, Situation Attachments: Ocasio Catheter, IV ROM/Strength ROM Lower Extremities LLE little to no AROM knee and ankle; Right LE WFLs AROM all planes Strength Lower Extremities Right LE 3+/5 all planes; Left LE 3-/5 all planes Sensory Vision: Functional Hearing: Functional Sensation Right Lower Extremit: Intact Sensation Left Lower Extremity: Impaired Transfers Roll Left to Right (QC): 3 Sit to Lying (QC): 3 Lying to Sitting/Side of Bed(Q: 3 Sit to Stand (QC): 2 Chair/Psm-br-Mfuhh Xfer(QC): 2 Gait Does the Patient Walk?: No and Walking Goal NOT indicated Mode of Locomotion: Wheelchair Anticipated Mode of Locomotion: Wheelchair Balance Sitting Static: Fair Sitting Dynamic: Fair Standing Static: Poor Standing Dynamic: Poor Assessment/Needs Patient requires mod/max A for all bed mobility and transfers. Patient performs SPT with max A as he is unable to perform at baseline without using BUEs. However per pacemaker precautions he is NWB right UE. Patient in chair post treatment with all needs met, nursing notified, call light in hand. Rehab Potential: Poor PT Skilled Nursing Goals Skilled Nursing Goals PT Skilled Nursing Goals Time Frame: Aug 03, 2023 Roll Left & Right (QC): 6 Sit to Lying (QC): 6 Lying-Sitting on Side/Bed(QC): 6 Sit to Stand (QC): 4 Chair/Ofi-ze-Qshpy Xfer(QC): 4 Toilet Transfer (QC): 4 Does the Patient Walk: No and Walking Goal NOT indicated PT Plan Problem List Problem List: Activity Tolerance, Functional Strength, Safety, Balance, Gait, Transfer, Bed Mobility, ROM Treatment/Plan Treatment Plan: Continue Plan of Care Treatment Plan: Bed Mobility, Education, Functional Activity Estelita, Functional Strength, Group Therapy, Gait, Safety, Therapeutic Exercise, Transfers Treatment Duration: Aug 03, 2023 Frequency: 5 times per week Estimated Hrs Per Day: .25 hour per day Safety Risks/Education Patient Education: Transfer Techniques Teaching Recipient: Patient Teaching Methods: Demonstration, Discussion Response to Teaching: Reinforcement Needed Time Time In: 1336 Time Out: 1350 DATE: Jul 16, 2023 Total Billed Treatment Time: 14 Total Billed Treatment Visit, ULICES LANE PT Jul 16, 2023 15:05
--- NOTE | 2023-07-16 15:07 | Occupational Therapy Eval ---
OT Evaluation-General/PLF Medical Diagnosis Admission Date Jul 15, 2023 at 10:38 Medical Diagnosis: Cystitis, Onset Date: Jul 13, 2023 Therapy Diagnosis Therapy Diagnosis: weakness Precautions Precautions/Isolations: Standard Precautions Weight Bear Status Weight Bearing Restriction: Partial Weight Bearing Location Restriction: L UE (8 pound limit/PPM 07/13/23) Referral Physician: Ermias Referral Reason: Activity Tolerance, Self Care, Evaluation/Treatment, Strengthening/ROM Medical History Additional Medical History Patient presented to ED with weakness, dizziness, and bleeding over his pac emaker site. He had a PPM placed on July 05 due to complete heart block. He is unsure of when the bleeding and bruising started. Of note, patient was seen in Dr. Mcbride's office for f/u on 07/11/23, PPM site at that time was D/D/I without erythema or drainage. He did have low grade fever at the time with questionable UTI and was started on Ceftin. Endorses generalized malaise, myalgia, a few days of nonbloody diarrhea, urinary and fecal incontinence, and a month long cough. Denies chest pain, soa, abdominal pain, or nausea/vomiting. Current History Lives alone, pays family 4 hours for home assistance, Patient unable to transfer self to/from bed and scooter mobility chair sustaining PPM restrictions or ROM and WB Social History Home: Apartment Entry Into Home: Elevator ADL-Prior Level of Function SCALE: Activities may be completed with or without assistive devices. 1-Shgvraprhe-njzhpxs completes the activity by him/herself with no assistance from a helper. 5-Set-up or Clean-up Assistance-helper sets up or cleans up; patient completes activity. [place] assists only prior to or following the activity. 4-Supervision or Touching Assistance-helper provides verbal cues and/or touching/steadying and/or contact guard assistance as patient completes activity. Assistance may be provided throughout the activity or intermittently. 3-Partial/Moderate Assistance-helper does LESS THAN HALF the effort. [place] lifts, holds or supports trunk or limbs, but provides less than half the effort. 2-Substantial/Maximal Assistance-helper does MORE THAN HALF the effort. [place] lifts or holds trunk or limbs and provides more than half the effort. 4-Hgaecnhuv-lxrbcj does ALL the effort. Patient does none of the effort to complete the activity. Or, the assistance of 2 or more helpers is required for the patient to complete the activity. If activity was not attempted, code reason: 7-Patient Refused. 9-Not Applicable-not attempted and the patient did not perform the activity before the current illness, exacerbation or injury. 10-Not Attempted due to Environmental Limitations-(lack of equipment, weather restraints, etc.). 88-Not Attempted due to Medical Conditions or Safety Concerns. Self Care: Needed Some Help Functional Cognition: Independent DME/Equipment: Bath Chair, Grab Bars, Shower DME/Equipment Comments Mobility scooter Drive Self: No OT Current Status Subjective Limited use of LEs, feeling better, not strong enough to go home Mental Status/Objective Patient Orientation: Person, Place, Time, Situation Current Glasses/Contacts: No Hearing Aids: No Dentures/Partials: No Hand Dominance: Right Upper Extremity ROM Limited ROM d/t PPM restrictionns Upper Extremity Coordination [facility] WFL Upper Extremity Strength 3/5 grossly wounds on bottom ADL-Treatment ADL-Current DM diet, assist with ADL at home.Prior to 07/05/23 patient performed ADLS modified independently Eating (QC): 6 Oral Hygiene (QC): 5 Shower/Bathe Self (QC): 7 Upper Body Dressing (QC): 5 Lower Body Dressing (QC): 3 On/Off Footwear (QC): 4 Toileting Hygiene (QC): 4 Education OT Patient Education: Correct positioning, Modified ADL techniques, Progress toward Goal/Update tx plan, Purpose of tx/functional activities, Reviewed precautions, Rehab process, Safety issues, Transfer techniques, Use of adapted equipment Teaching Recipient: Patient Teaching Methods: Demonstration, Discussion Response to Teaching: Verbalize Understanding, Reinforcement Needed OT Jail Goals Jail Goals Time Frame: Jul 22, 2023 Eating (QC): 6 Oral Hygiene (QC): 6 Toileting Hygiene (QC): 6 Shower/Bathe Self (QC): 5 Upper Body Dressing (QC): 6 Lower Body Dressing (QC): 6 On/Off Footwear (QC): 6 1=Demonstrate adherence to instructed precautions during ADL tasks. 2=Patient will verbalize/demonstrate understanding of assistive devices/modifications for ADL. 3=Patient will improve strength/tolerance for activity to enable patient to perform ADL's. OT Education/Plan Problem List/Assessment Assessment: Decreased Activ Tolerance, Decreased UE Strength, Impaired Self- Care Skills, Restricted Funct UE ROM Discharge Recommendations Plan/Recommendations: Continue POC Treatment Plan/Plan of Care Treatment,Training & Education: Yes Patient would benefit from OT for education, treatment and training to promote independence in ADL's, mobility, safety and/or upper extremity function for ADL's. Plan of Care: ADL Retraining, Concurrent Therapy, Functional Mobility, Group Exercise/Act as Ind, UE Funct Exercise/Act Treatment Duration: Jul 22, 2023 Frequency: 3 times per week (3-5 times per week) Estimated Hrs Per Day: .25 hour per day Agreement: Yes Rehab Potential: Fair Time Start Time: 14:47 Stop Time: 15:12 DATE: Jul 16, 2023 Total Time Billed (hr/min): 25 Billed Treatment Time 1 EVM,1 ADL 25 ,min GABBI BERTRAND OT Jul 16, 2023 15:07
[2023-07-16 16:33] VITALS: BP 120/62
[2023-07-16 20:28] VITALS: BP 122/63
[2023-07-16] MEDS: CIPROFLOXACIN 500 MG TABLET PO SCH (20:44)
[2023-07-16] MEDS: MICONAZOLE 2% CREAM 30 GM TP SCH (20:45)
[2023-07-16] MEDS: BENZOCAINE LOZENGES 1 EACH PO PRN (21:15)
[2023-07-16 23:12] VITALS: BP 116/60
[2023-07-17 03:49] VITALS: BP 125/68
[2023-07-17 05:45] LABS: HEMATOCRIT 33 % (40-54); HEMOGLOBIN 10.9 g/dL (13.3-17.7); MEAN CORPUSCULAR HEMOGLOBIN 30 pg (25-34); MEAN CORPUSCULAR HGB CONC 33 g/dL (32-36); MEAN CORPUSCULAR VOLUME 90 fL (80-99); PLATELET COUNT 286 10^3/uL (130-400); WHITE BLOOD COUNT 6.6 10^3/uL (4.3-11.0)
[2023-07-17 05:57] LABS: ALBUMIN 3.3 GM/DL (3.2-4.5); POTASSIUM 4.4 MMOL/L (3.6-5.0)
[2023-07-17 05:59] LABS: TOTAL PROTEIN 6.2 GM/DL (6.4-8.2)
[2023-07-17 06:01] LABS: BILIRUBIN,TOTAL 0.8 MG/DL (0.1-1.0)
[2023-07-17 06:03] LABS: CREATININE SERUM 0.84 MG/DL (0.60-1.30)
[2023-07-17] MEDS: metFORMIN 500 MG TABLET PO SCH (06:07)
[2023-07-17] MEDS: inSUlin ASPART 1 UNIT/0.01 ML (PER UNIT) SC SCH ×4 (06:08→20:48)
[2023-07-17 07:06] VITALS: BP 115/68
[2023-07-17] MEDS ORDERED: NON-FORMULARY MEDICATION 1 EA EA (Metformin HCl 1,000 MG) PO SCH (09:00)
--- NOTE | 2023-07-17 09:01 | Occupational Ther Daily Note ---
OT Current Status-Daily Note Subjective Resting in bed, completed breakfast and used urinal,however spilled urine on linens and body Mental Status/Objective Patient Orientation: Person, Place, Time, Situation ADL-Treatment Reviewed PPM precautions w/ patient, instructed in transfer sequence from bed to recliner w/ stand pivot 1/4 turn to right. Left foot drop, required min assistance bringing LLE to EOB, however during sponge bathing and sock donning patient manipulated LLE w/ BUEs to position in figure four pose to completed skills Therapy Code Descriptions/Definitions Functional [place] Measure: 0=Not Assessed/NA 4=Minimal Assistance 1=Total Assistance 5=Supervision or Setup 2=Maximal Assistance 6=Modified [place] 3=Moderate Assistance 7=Complete IndependenceSCALE: Activities may be completed with or without assistive devices. 3-Alwkdwyzzd-aeeabuv completes the activity by him/herself with no assistance from a helper. 5-Set-up or Clean-up Assistance-helper sets up or cleans up; patient completes activity. [place] assists only prior to or following the activity. 4-Supervision or Touching Assistance-helper provides verbal cues and/or touching/steadying and/or contact guard assistance as patient completes activity. Assistance may be provided throughout the activity or intermittently. 3-Partial/Moderate Assistance-helper does LESS THAN HALF the effort. [place] lifts, holds or supports trunk or limbs, but provides less than half the effort. 2-Substantial/Maximal Assistance-helper does MORE THAN HALF the effort. [place] lifts or holds trunk or limbs and provides more than half the effort. 5-Biqxexjjw-sesizl does ALL the effort. Patient does none of the effort to complete the activity. Or, the assistance of 2 or more helpers is required for the patient to complete the activity. If activity was not attempted, code reason: 7-Patient Refused. 9-Not Applicable-not attempted and the patient did not perform the activity before the current illness, exacerbation or injury. 10-Not Attempted due to Environmental Limitations-(lack of equipment, weather restraints, etc.). 88-Not Attempted due to Medical Conditions or Safety Concerns. Eating (QC): 6 Oral Hygiene (QC): 5 (toothpaste, brush and cup of water set up bedside. Patient performed in recliner) Bathing Location: L Arm, R Arm, L Upper Leg, R Upper Leg, L Lower Leg (including foot), R Lower Leg (including foot), Chest, Abdomen, Buttocks, Perineal Area Shower/Bathe Self (QC): 4 (Education for pelvic weight shifting d/t PPM restriction.) Upper Body Dressing (QC): 4 Lower Body Dressing (QC): 3 (not wearing brief, removes sheet and pads from underneath) On/Off Footwear: 4 Toileting Hygiene (QC): 4 (Use of perid sponge clothe ) Toilet Transfer (QC): 4 Instructed patient in siting upright EOB for use of urinal to decrease spilling urine Education OT Patient Education: Correct positioning, Modified ADL techniques, Progress toward Goal/Update tx plan, Purpose of tx/functional activities, Reviewed precautions, Rehab process, Safety issues, Transfer techniques Teaching Recipient: Patient Teaching Methods: Demonstration, Discussion Response to Teaching: Verbalize Understanding, Reinforcement Needed OT Wardrobe Image Consultant Goals Wardrobe Image Consultant Goals Time Frame: Jul 22, 2023 Eating (QC): 6 Oral Hygiene (QC): 6 Toileting Hygiene (QC): 6 Shower/Bathe Self (QC): 5 Upper Body Dressing (QC): 6 Lower Body Dressing (QC): 6 On/Off Footwear (QC): 6 1=Demonstrate adherence to instructed precautions during ADL tasks. 2=Patient will verbalize/demonstrate understanding of assistive devices/modifications for ADL. 3=Patient will improve strength/tolerance for activity to enable patient to perform ADL's. OT Education/Plan Problem List/Assessment Assessment: Decreased Activ Tolerance, Decreased Safety Aware, Decreased UE Strength, Impaired Bed Mobility, Impaired Self-Care Skills, Restricted Funct UE ROM Discharge Recommendations Plan/Recommendations: Continue POC Treatment Plan/Plan of Care Treatment,Training & Education: Yes Patient would benefit from OT for education, treatment and training to promote independence in ADL's, mobility, safety and/or upper extremity function for ADL's. Plan of Care: ADL Retraining, Concurrent Therapy, Functional Mobility, Group Exercise/Act as Ind, UE Funct Exercise/Act Treatment Duration: Jul 22, 2023 Frequency: 3 times per week (3-5 times per week) Estimated Hrs Per Day: .25 hour per day Agreement: Yes Rehab Potential: Fair Time Start Time: 08:38 Stop Time: 08:53 DATE: Jul 17, 2023 Total Time Billed (hr/min): 15 Billed Treatment Time ADL 15 min GABBI BERTRAND OT Jul 17, 2023 09:01
[2023-07-17] MEDS: CIPROFLOXACIN 500 MG TABLET PO SCH ×2 (09:10→20:48)
[2023-07-17] MEDS: GABAPENTIN 300 MG CAPSULE PO SCH (09:10)
[2023-07-17] MEDS: TAMSULOSIN 0.4 MG (FLOMAX) CAP PO SCH (09:10)
[2023-07-17] MEDS: LOSARTAN 25 MG TABLET PO SCH (09:10)
[2023-07-17] MEDS: MICONAZOLE 2% CREAM 30 GM TP SCH ×2 (09:11→20:49)
[2023-07-17] MEDS: MICONAZOLE 2% POWDER 90 GM TOP SCH ×2 (09:11→20:48)
--- NOTE | 2023-07-17 09:39 | Physical Therapy Daily Note ---
PT Daily Note-Current Subjective Pt pleasantly confused. Agrees to work on standing. He was able to recall that he is not supposed to use the (L) arm. Pain Section J - Health Conditions 1. Rarely or not at all 2. Occasionally 3. Frequently 4. Almost constantly 8. Unable to answer Pain Effect on Sleep: 2 Pain Interference with Therapy: 2 Pain Interference w/Day-to-Day: 2 Transfers SCALE: Activities may be completed with or without assistive devices. 5-Wsdheqdiwi-hmqonyt completes the activity by him/herself with no assistance from a helper. 5-Set-up or Clean-up Assistance-helper sets up or cleans up; patient completes activity. [place] assists only prior to or following the activity. 4-Supervision or Touching Assistance-helper provides verbal cues and/or touching/steadying and/or contact guard assistance as patient completes activity. Assistance may be provided throughout the activity or intermittently. 3-Partial/Moderate Assistance-helper does LESS THAN HALF the effort. [place] lifts, holds or supports trunk or limbs, but provides less than half the effort. 2-Substantial/Maximal Assistance-helper does MORE THAN HALF the effort. [place] lifts or holds trunk or limbs and provides more than half the effort. 3-Oshjrpdfb-qkrlbk does ALL the effort. Patient does none of the effort to complete the activity. Or, the assistance of 2 or more helpers is required for the patient to complete the activity. If activity was not attempted, code reason: 7-Patient Refused. 9-Not Applicable-not attempted and the patient did not perform the activity before the current illness, exacerbation or injury. 10-Not Attempted due to Environmental Limitations-(lack of equipment, weather restraints, etc.). 88-Not Attempted due to Medical Conditions or Safety Concerns. Roll Left & Right (QC): 4 Sit to Lying (QC): 4 Lying to Sitting/Side of Bed(Q: 4 Sit to Stand (QC): 4 Chair/Zgs-lh-Eazzf Xfer(QC): 4 Able to stand and transfer with assist of one person. Needs verbal cues to avoid using the left arm to press up from the chair. Weight Bearing Right Lower Extremity: Right Weight Bearing/Tolerated Left Lower Extremity: Left Weight Bearing/Tolerated Exercises Standing: Sit to Stand Standing Reps: 3 Worked standing balance with wt shirt and forward backward stepping. Min assist with pt holding the bedrail with the right hand and therapists holding the left hand for balance. Difficulty moving the (L) foot. Assessment Current Status: Good Progress Improved bed mobility and transfers this session. Able to complete mobility with assist of one person. Able to follow all cues. PT Consulting Sales Executive Goals Care Home Goals PT Care Home Goals Time Frame: Aug 03, 2023 Roll Left & Right (QC): 6 Sit to Lying (QC): 6 Lying-Sitting on Side/Bed(QC): 6 Sit to Stand (QC): 4 Chair/Vva-cc-Qdxus Xfer(QC): 4 Toilet Transfer (QC): 4 Does the Patient Walk: No and Walking Goal NOT indicated PT Plan Treatment/Plan Treatment Plan: Continue Plan of Care Treatment Plan: Bed Mobility, Education, Functional Activity Estelita, Functional Strength, Group Therapy, Gait, Safety, Therapeutic Exercise, Transfers Treatment Duration: Aug 03, 2023 Frequency: 5 times per week Estimated Hrs Per Day: .25 hour per day Time Time In: 919 Time Out: 934 DATE: Jul 17, 2023 Total Billed Treatment Time: 15 Total Billed Treatment visit, FA 15 min OLU OBRIEN PT Jul 17, 2023 09:38
[2023-07-17 11:17] VITALS: BP 109/62
--- NOTE | 2023-07-17 11:50 | Cardiology Progress Note ---
Subjective Date Seen by Provider: Jul 17, 2023 Time Seen by Provider: 08:35 Subjective/Events-last exam Patient is asleep in bed, easily awakens to answer questions. Denies any chest pain Focused Exam Lactate Level 07/15/23 08:35: Lactic Acid Level 2.20*H 07/15/23 10:26: Lactic Acid Level 0.97 Objective-Cardiology Exam Last Set of Vital Signs Vital Signs 07/17/23 16:17 Temp 36.6 Pulse 88 Resp 16 B/P (MAP) 117/63 (81) Pulse Ox 98 O2 Delivery Room Air I&O Intake and Output 07/17/23 00:00 Intake Total 1400 ml Output Total 1800 ml Balance -400 ml Intake Oral 1400 ml Output Urine Total 1800 ml # Bowel Movements 2 # [place] 1 General: Alert, No Acute Distress HEENT: Atraumatic Lungs: Other (Expiratory rhonchi) Heart: Regular Rate, No Murmurs Abdomen: Normal Bowel Sounds, Soft, No Tenderness Extremities: No Edema Skin: Other (Diffuse inguinal, periurethral, and scrotal ertyhma extending to the sacrum. Sacral ulcer covered with dressing.) Neuro: Normal Speech Psych/Mental Status: Mood NL Results Lab Laboratory Tests 07/17/23 05:08 A/P-Cardiology Admission Diagnosis Hematoma to pacemaker site UTI HTN HLP Assessment/Plan Hematoma to pacemaker site, steri strips still in tact, no active bleeding at this time. Compression dressing in place. Continue to monitor. UTI, started on antibiotic. management per medical services Status post syncope with symptomatic bradycardia Complete heart block Status post dual-chamber pacemaker implantation done on July 04, 2023 Good sensing and capture activity Hypertension, controlled, continue to monitor. Questionable intolerance to ALIDA-I with cough. Lisinopril was discontinued and started on losartan. Diabetes mellitus, followed and managed by primary care physician Hyperlipidemia, maintained on atorvastatin 80 mg daily, Diabetic neuropathy and myopathy, generalized weakness Patient is in a wheelchair Generalized debility/weakness Supervisory-Addendum Brief Supervisory Addendum Participated in pt care: history, MDM, physical Personally performed: exam, history, MDM Care discussed with: CELI Results interpretation: Verified all documentation Notes: Patient was seen and evaluated with Edith, examination performed, management plan was discussed, agree with the current scribed note, I made few changes to the note using Italic font Patient was seen at bedside, laying down comfortably, no new complain Dressing was removed and changed over the pacemaker Continue to monitor heart rate and blood pressure, no changes are recommended EDITH MENDENHALL Jul 17, 2023 11:50 FLORIDALMA SCHMIDT MD Jul 17, 2023 17:30
--- NOTE | 2023-07-17 13:32 | Progress Note ---
SNEHA WHITTAKER 07/17/23 1332: Subjective Subjective/Events-last exam Patient was resting comfortably in bed this morning. He says he feels well and his only discomfort is from his sacral ulcer. He says he is not having any troubles with urination, and he is not sure if he is emptying his bladder all of the way. Denies headache, chest pain, shortness of breath, abdominal pain, dysuria, or constipation. It was discussed with patient that he would benefit from a short-stay at a group home facility before he went home. Patient was open to this idea and said he would be willing to do this. Patient said he has not talked to his sister since his admission. He is going to try to contact her so that he can discuss his plan going into the future, as she is his primary caregiver and spends approximately 22 hours/week caring for him. Focused Exam Lactate Level 07/15/23 08:35: Lactic Acid Level 2.20*H 07/15/23 10:26: Lactic Acid Level 0.97 Objective Exam Last Set of Vital Signs Vital Signs Date Time Temp Pulse Resp B/P (MAP) Pulse Ox O2 Delivery O2 Flow Rate FiO2 07/17/23 12:19 86 07/17/23 11:17 36.5 16 109/62 (78) 98 07/17/23 08:31 Room Air Capillary Refill : Less Than 3 Seconds I&O Intake and Output 07/17/23 00:00 Intake Total 1400 ml Output Total 1800 ml Balance -400 ml Intake Oral 1400 ml Output Urine Total 1800 ml # Bowel Movements 2 # [place] 1 General: Alert, Oriented X3, Cooperative, Mild Distress HEENT: Atraumatic Lungs: Other (Expiratory rhonchi) Heart: Regular Rate, Normal S1, Normal S2, No Murmurs Abdomen: Normal Bowel Sounds, No Tenderness, No Hepatosplenomegaly, No Masses Extremities: No Clubbing, No Cyanosis, No Edema, Normal Pulses, No Tenderness/ Swelling Skin: No Rashes, No Breakdown, No Significant Lesion Neuro: Normal Speech Psych/Mental Status: Mental Status NL, Mood NL Results/Procedures Lab Laboratory Tests 07/16/23 15:15: Glucometer 245H 07/16/23 20:10: Glucometer 261H 07/17/23 05:08: White Blood Count 6.6, Red Blood Count 3.67L, Hemoglobin 10.9L, Hematocrit 33L, Mean Corpuscular Volume 90, Mean Corpuscular Hemoglobin 30, Mean Corpuscular Hemoglobin Concent 33, Red Cell Distribution Width 13.3, Platelet Count 286, Mean Platelet Volume 9.0, Sodium Level 136, Potassium Level 4.4, Chloride Level 103, Carbon Dioxide Level 24, Anion Gap 9, Blood Urea Nitrogen 11, Creatinine 0.84, Estimat Glomerular Filtration Rate 96, BUN/Creatinine Ratio 13, Glucose Level 278H, Calcium Level 9.0, Corrected Calcium 9.6, Total Bilirubin 0.8, Aspartate Amino Transf (AST/SGOT) 19, Alanine Aminotransferase (ALT/SGPT) 18, Alkaline Phosphatase 103, Total Protein 6.2L, Albumin 3.3 07/17/23 10:45: Glucometer 182H Microbiology 07/15/23 Blood Culture - Preliminary, Resulted 07/15/23 Urine Culture - Final, Complete NO GROWTH Radiology Chest XRay: There is no radiographic evidence of acute cardiopulmonary process. Assessment/Plan Assessment/Plan Admission Status: Observation (1) UTI (urinary tract infection) Status: Acute Assessment & Plan: - WBC count of 12 upon admission - UA showed 3+ protein, 1+ leukocyte esterase, 3+ RBC, WBC TNTC, and moderate b acteria. - Lactic acid level of 2.2. Repeat levels were .97. - Patient was originally started on cefuroxime on 07/11 for suspected UTI. - Switched antibiotic from cefuroxime to IV cefepime on admission - Transitioning to oral ciprofloxacin 500mg BID for 7 days - Continue to monitor for signs of systemic infection - No growth to date on urine cultures or blood cultures Qualifiers: Qualified Codes: N30.01 - Acute cystitis with hematuria (2) Urinary retention Status: Acute Assessment & Plan: - Patient had bladder US done with 400ml of postvoid residual. - This could be secondary to side effect from TURP procedure patient recently had performed vs urinary stricture vs UTI vs residual BPH - Franco catheter inserted on 07/15. - Discontinued franco catheter. Patient is continuing to have around 200-300mL of urine on postvoid residuals. Plan for discharge may be to insert a franco catheter and follow-up outpatient with urology. (3) Hematoma of left chest wall Status: Resolved Assessment & Plan: - Hematoma around pacemaker site, cleaned around site, steri strips still in tact, no active bleeding at this time. - Pressure dressing applied - Cardiology has cleared patient, as long as urine cultures and blood cultures continue to be negative Qualifiers: Qualified Codes: S20.212A - Contusion of left front wall of thorax, initial encounter (4) Wheelchair dependent Status: Chronic Assessment & Plan: - Patient is wheelchair dependent due to uncontrolled diabetes mellitus type II - He is very weak is struggling to perform tasks in hospital - PT and OT were consulted. PT said that he required maximum assistance on everything. OT said he is not strong enough to go home at this time. (5) Sacral decubitus ulcer Status: Chronic Assessment & Plan: - History of LE neuropathy secondary to uncontrolled T2DM leading to wheelchair dependance. - Lactic acid level of 2.2. Repeat levels were .97. - Leukocytosis present on admission has resolved - Continue with wound care for sacral ulcer and monitor for signs of systemic infection (6) Genital candidiasis in male Status: Chronic Assessment & Plan: - Using topical miconazole powder (7) Uncontrolled diabetes mellitus Status: Chronic Assessment & Plan: - STATISTICAL DEVELOPER Metformin restarted - Continue sliding scale insulin Qualifiers: Qualified Codes: E11.65 - Type 2 diabetes mellitus with hyperglycemia (8) HTN (hypertension) Status: Chronic Assessment & Plan: - Patient was started on lisinopril on 07/05 and this was subsequently switched to losartan due to possible dry cough associated with lisinopril. - Continue STATISTICAL DEVELOPER losartan Qualifiers: Qualified Codes: I10 - Essential (primary) hypertension (9) HLD (hyperlipidemia) Status: Chronic Assessment & Plan: - Continue STATISTICAL DEVELOPER atorvastatin Qualifiers: Qualified Codes: E78.5 - Hyperlipidemia, unspecified (10) Hyperbilirubinemia Status: Resolved Assessment & Plan: - Bilirubin level of .6 on 07/05 and 1.1 on 07/15 - Bilirubin levels normalized to .9 on 07/16 LUZ MARINA LOMELI MD 07/17/231920: Supervisory-Addendum Brief Supervisory Addendum I personally performed or re-performed the history, physical exam and treatment for the E/M. I discussed the case with the Medical Student, and concur with the Medical Student documentation of history, physical exam and treatment plan unless otherwise noted. Of note- different from student documentation, he does have skin breakdown- sacral area not examined today, but he does have ulcerations and the genital area erythema/rash, which we are treating with miconazole cream, not powder. SNEHA WHITTAKER Jul 17, 2023 13:32 LUZ MARINA LOMELI MD Jul 17, 2023 19:21
[2023-07-17 16:17] VITALS: BP 117/63
[2023-07-17 20:21] VITALS: BP 116/57
[2023-07-17] MEDS: BENZOCAINE LOZENGES 1 EACH PO PRN (21:02)
[2023-07-18] VITALS: BP 124/62
[2023-07-18 04:15] VITALS: BP 114/64
[2023-07-18 06:12] LABS: HEMATOCRIT 35 % (40-54); HEMOGLOBIN 11.5 g/dL (13.3-17.7); MEAN CORPUSCULAR HEMOGLOBIN 30 pg (25-34); MEAN CORPUSCULAR HGB CONC 33 g/dL (32-36); MEAN CORPUSCULAR VOLUME 90 fL (80-99); MEAN PLATELET VOLUME 9.1 fL (9.0-12.2); PLATELET COUNT 301 10^3/uL (130-400); WHITE BLOOD COUNT 8.1 10^3/uL (4.3-11.0)
[2023-07-18 06:30] LABS: ALBUMIN 3.3 GM/DL (3.2-4.5); CALCIUM 9.2 MG/DL (8.5-10.1); CREATININE SERUM 0.79 MG/DL (0.60-1.30); POTASSIUM 4.4 MMOL/L (3.6-5.0); TOTAL PROTEIN 6.2 GM/DL (6.4-8.2)
[2023-07-18] MEDS: inSUlin ASPART 1 UNIT/0.01 ML (PER UNIT) SC SCH ×4 (06:40→19:58)
[2023-07-18] MEDS: metFORMIN 500 MG TABLET PO SCH (06:52)
[2023-07-18 07:12] VITALS: BP 113/59
--- NOTE | 2023-07-18 08:56 | Cardiology Progress Note ---
Subjective Date Seen by Provider: Jul 18, 2023 Time Seen by Provider: 08:20 Subjective/Events-last exam Patient is sitting up in bed, eating breakfast. C/o generalized weakness Focused Exam Lactate Level 07/15/23 10:26: Lactic Acid Level 0.97 Objective-Cardiology Exam Last Set of Vital Signs Vital Signs 07/18/23 07:12 Temp 36.5 Pulse 88 Resp 16 B/P (MAP) 113/59 (77) Pulse Ox 96 O2 Delivery Room Air I&O Intake and Output 07/18/23 00:00 Intake Total 2840 ml Output Total 1525 ml Balance 1315 ml Intake Oral 2840 ml Output Urine Total 1525 ml # Voids 4 # Bowel Movements 1 # Emeses 1 General: Alert, Oriented X3, Cooperative, Mild Distress HEENT: Atraumatic Lungs: Other (Expiratory rhonchi) Heart: Regular Rate, Normal S1, Normal S2, No Murmurs Abdomen: Normal Bowel Sounds, No Tenderness, No Hepatosplenomegaly, No Masses Extremities: No Clubbing, No Cyanosis, No Edema, Normal Pulses, No Tend erness/Swelling Skin: No Rashes, No Breakdown, No Significant Lesion Neuro: Normal Speech Psych/Mental Status: Mental Status NL, Mood NL Results Lab Laboratory Tests 07/18/23 05:38 A/P-Cardiology Admission Diagnosis Hematoma to pacemaker site UTI HTN HLP Assessment/Plan Hematoma to pacemaker site, improving, steri strips still in tact, no active bleeding at this time. Dressing in C/D/I . UTI, management per medical services Status post syncope with symptomatic bradycardia Complete heart block Status post dual-chamber pacemaker implantation done on July 04, 2023 Good sensing and capture activity Hypertension, controlled, continue to monitor. Questionable intolerance to ALIDA-I with cough. Lisinopril was discontinued and started on losartan. Diabetes mellitus, followed and managed by primary care physician Hyperlipidemia, maintained on atorvastatin 80 mg daily, Diabetic neuropathy and myopathy, generalized weakness Patient is in a wheelchair Generalized debility/weakness Supervisory-Addendum Brief Supervisory Addendum Participated in pt care: history, MDM, physical Personally performed: exam, history, MDM Care discussed with: CELI Results interpretation: Verified all documentation Notes: Patient was seen and evaluated with Edith, examination performed, management plan was discussed, agree with the current scribed note, I made few changes to the note using Italic font Patient was seen at bedside, laying down comfortably, feeling better Still having generalized weakness No signs of infection at the pacemaker site Continue to monitor EDITH MENDENHALL Jul 18, 2023 08:56 FLORIDALMA SCHMIDT MD Jul 18, 2023 09:15
[2023-07-18] MEDS: LOSARTAN 25 MG TABLET PO SCH (09:09)
[2023-07-18] MEDS: MICONAZOLE 2% POWDER 90 GM TOP SCH ×2 (09:09→19:59)
[2023-07-18] MEDS: GABAPENTIN 300 MG CAPSULE PO SCH (09:09)
[2023-07-18] MEDS: TAMSULOSIN 0.4 MG (FLOMAX) CAP PO SCH (09:09)
[2023-07-18] MEDS: CIPROFLOXACIN 500 MG TABLET PO SCH ×2 (09:09→19:57)
[2023-07-18] MEDS: MICONAZOLE 2% CREAM 30 GM TP SCH ×2 (09:09→20:00)
--- NOTE | 2023-07-18 10:50 | Physical Therapy Daily Note ---
PT Daily Note-Current Subjective Patient agrees to PT. Pain Numeric Pain Scale: 0-No Pain Location: No Pain Reported Section J - Health Conditions 1. Rarely or not at all 2. Occasionally 3. Frequently 4. Almost constantly 8. Unable to answer Pain Effect on Sleep: 1 Pain Interference with Therapy: 1 Pain Interference w/Day-to-Day: 1 Transfers SCALE: Activities may be completed with or without assistive devices. 2-Rikbsfzncc-teajebx completes the activity by him/herself with no assistance from a helper. 5-Set-up or Clean-up Assistance-helper sets up or cleans up; patient completes activity. [place] assists only prior to or following the activity. 4-Supervision or Touching Assistance-helper provides verbal cues and/or touching/steadying and/or contact guard assistance as patient completes activity. Assistance may be provided throughout the activity or intermittently. 3-Partial/Moderate Assistance-helper does LESS THAN HALF the effort. [place] lifts, holds or supports trunk or limbs, but provides less than half the effort. 2-Substantial/Maximal Assistance-helper does MORE THAN HALF the effort. [place] lifts or holds trunk or limbs and provides more than half the effort. 2-Kumnvisyw-gnxlxe does ALL the effort. Patient does none of the effort to complete the activity. Or, the assistance of 2 or more helpers is required for the patient to complete the activity. If activity was not attempted, code reason: 7-Patient Refused. 9-Not Applicable-not attempted and the patient did not perform the activity before the current illness, exacerbation or injury. 10-Not Attempted due to Environmental Limitations-(lack of equipment, weather restraints, etc.). 88-Not Attempted due to Medical Conditions or Safety Concerns. Lying to Sitting/Side of Bed(Q: 3 Sit to Stand (QC): 3 Chair/Nly-lm-Xmqaj Xfer(QC): 3 Weight Bearing Right Lower Extremity: Right Weight Bearing/Tolerated Left Lower Extremity: Left Weight Bearing/Tolerated Gait Training Walk 10 feet (QC): 9 Treatments Patient worked on sitting dynamic balance during ADL's with OT (washing body). Patient had 2 episodes of LOB to left then right with self correct to return upright. Assessment Patient tolerated treatment and is up in recliner with needs met. PT to continue to increase activity as tolerated by patient. PT Half-Way Goals Evp Sales Goals PT Evp Sales Goals Time Frame: Aug 03, 2023 Roll Left & Right (QC): 6 Sit to Lying (QC): 6 Lying-Sitting on Side/Bed(QC): 6 Sit to Stand (QC): 4 Chair/Hvj-tt-Ogkbx Xfer(QC): 4 Toilet Transfer (QC): 4 Does the Patient Walk: No and Walking Goal NOT indicated PT Plan Treatment/Plan Treatment Plan: Continue Plan of Care Treatment Plan: Bed Mobility, Education, Functional Activity Estelita, Functional Strength, Group Therapy, Gait, Safety, Therapeutic Exercise, Transfers Treatment Duration: Aug 03, 2023 Frequency: 5 times per week Estimated Hrs Per Day: .25 hour per day Time Time In: 836 Time Out: 859 DATE: Jul 18, 2023 Total Billed Treatment Time: 23 Total Billed Treatment 1 visit FA x 2 23 min DARLIN HAMMONDS PT Jul 18, 2023 10:50
--- NOTE | 2023-07-18 10:55 | Occupational Ther Daily Note ---
OT Current Status-Daily Note Subjective [id number] bed saturated w/ spilled urine from urinal. OT recalled previous education for risk of skin wounds and laying moist acidic bed. Bed mobility education and intervention for PPM restrictions Mental Status/Objective Patient Orientation: Person, Place, Time, Situation ADL-Treatment Sponge bath with wipes sitting in recliner, VCs for proper weight shifting and use of LUE, wound on bottom. Patient reports needing assistance for LLE mobility in bed however managed placement and position sitting in recliner to apply socks and cleanse foot. Low motivation to care for self Therapy Code Descriptions/Definitions Functional Person Measure: 0=Not Assessed/NA 4=Minimal Assistance 1=Total Assistance 5=Supervision or Setup 2=Maximal Assistance 6=Modified Person 3=Moderate Assistance 7=Complete IndependenceSCALE: Activities may be completed with or without assistive devices. 6-Xyemfpqfjj-wlvahos completes the activity by him/herself with no assistance from a helper. 5-Set-up or Clean-up Assistance-helper sets up or cleans up; patient completes activity. [place] assists only prior to or following the activity. 4-Supervision or Touching Assistance-helper provides verbal cues and/or touching/steadying and/or contact guard assistance as patient completes activity. Assistance may be provided throughout the activity or intermittently. 3-Partial/Moderate Assistance-helper does LESS THAN HALF the effort. [place] lifts, holds or supports trunk or limbs, but provides less than half the effort. 2-Substantial/Maximal Assistance-helper does MORE THAN HALF the effort. [place] lifts or holds trunk or limbs and provides more than half the effort. 2-Atewtgnvu-pfjold does ALL the effort. Patient does none of the effort to complete the activity. Or, the assistance of 2 or more helpers is required for the patient to complete the activity. If activity was not attempted, code reason: 7-Patient Refused. 9-Not Applicable-not attempted and the patient did not perform the activity before the current illness, exacerbation or injury. 10-Not Attempted due to Environmental Limitations-(lack of equipment, weather restraints, etc.). 88-Not Attempted due to Medical Conditions or Safety Concerns. Eating (QC): 6 Oral Hygiene (QC): 5 (set up on bedside tray for daily oral care) Bathing Location: L Arm, R Arm, L Upper Leg, R Upper Leg, L Lower Leg (including foot), R Lower Leg (including foot), Chest, Abdomen, Buttocks, Perineal Area Shower/Bathe Self (QC): 4 Upper Body Dressing (QC): 5 Lower Body Dressing (QC): 3 (d/t not following precaution transfer instruction) On/Off Footwear: 4 Toileting Hygiene (QC): 4 Toilet Transfer (QC): 3 OT set up all oral/face hygiene supplies, additional bath wipes and deodorant spray Education OT Patient Education: Correct positioning, Exercise program, Modified ADL techniques, Progress toward Goal/Update tx plan, Purpose of tx/functional activities, Reviewed precautions, Rehab process, Safety issues, Transfer techniques Teaching Recipient: Patient Teaching Methods: Demonstration, Discussion Response to Teaching: Verbalize Understanding, Reinforcement Needed OT Animal Care Specialist Goals Usp Goals Time Frame: Jul 22, 2023 Eating (QC): 6 Oral Hygiene (QC): 6 Toileting Hygiene (QC): 6 Shower/Bathe Self (QC): 5 Upper Body Dressing (QC): 6 Lower Body Dressing (QC): 6 On/Off Footwear (QC): 6 1=Demonstrate adherence to instructed precautions during ADL tasks. 2=Patient will verbalize/demonstrate understanding of assistive devices/m odifications for ADL. 3=Patient will improve strength/tolerance for activity to enable patient to perform ADL's. OT Education/Plan Problem List/Assessment Assessment: Decreased Activ Tolerance, Decreased Safety Aware, Decreased UE Strength, Impaired Bed Mobility, Impaired Coordination, Impaired Funct Balance, Impaired Self-Care Skills, Restricted Funct UE ROM Discharge Recommendations Plan/Recommendations: Continue POC Therapy Discharge Recommendati: Post Acute OT Treatment Plan/Plan of Care Treatment,Training & Education: Yes Patient would benefit from OT for education, treatment and training to promote independence in ADL's, mobility, safety and/or upper extremity function for ADL's. Plan of Care: ADL Retraining, Concurrent Therapy, Functional Mobility, Group Exercise/Act as Ind, UE Funct Exercise/Act Treatment Duration: Jul 22, 2023 Frequency: 3 times per week (3-5 times per week) Estimated Hrs Per Day: .25 hour per day Agreement: Yes Rehab Potential: Fair Sitting in recliner with clean gown, socks, oral care completed, sponge bathed, urinal in reach, alysha light in reach, all needs met Time Start Time: 08:36 Stop Time: 08:59 DATE: Jul 18, 2023 Total Time Billed (hr/min): 23 Billed Treatment Time ADL 23 GABBI BERTRAND OT Jul 18, 2023 10:55
[2023-07-18 12:08] VITALS: BP 108/66
--- NOTE | 2023-07-18 12:41 | Progress Note ---
SNEHA WHITTAKER 07/18/23 1241: Subjective Subjective/Events-last exam Patient was resting in bed this morning. He was not feeling well during out visit because he had a sprite that bumped his sugar up. He said it made him feel warm and dizzy. He also had some concerns about his urination yesterday because he could not get positioned correctly. He figured it out and has no more concerns about it today. He was able to get ahold of his sister yesterday. He said that she will still be taking care of him when he is discharged from the SNF. Objective Exam Last Set of Vital Signs Vital Signs Date Time Temp Pulse Resp B/P (MAP) Pulse Ox O2 Delivery O2 Flow Rate FiO2 07/18/23 12:08 36.8 85 16 108/66 (80) 96 Room Air Capillary Refill : Less Than 3 Seconds I&O Intake and Output 07/18/23 00:00 Intake Total 2840 ml Output Total 1525 ml Balance 1315 ml Intake Oral 2840 ml Output Urine Total 1525 ml # Voids 4 # Bowel Movements 1 # Emeses 1 General: Alert, Oriented X3, Cooperative, Mild Distress HEENT: Atraumatic Lungs: Other (Expiratory rhonchi) Heart: Regular Rate, Normal S1, Normal S2, No Murmurs Abdomen: Normal Bowel Sounds, Soft, No Tenderness, No Hepatosplenomegaly, No Masses Extremities: No Clubbing, No Cyanosis, No Edema, Normal Pulses, Other (Bilateral LE knee abrasions) Skin: Other (Bilateral LE knee abrasions. Bruising on left chest wall. Sacral pressure ulcer.) Neuro: Normal Speech, Other (Wheelchair bound) Psych/Mental Status: Mental Status NL, Mood NL Results/Procedures Lab Laboratory Tests 07/17/23 16:11: Glucometer 192H 07/17/23 20:25: Glucometer 237H 07/18/23 05:38: White Blood Count 8.1, Red Blood Count 3.86L, Hemoglobin 11.5L, Hematocrit 35L, Mean Corpuscular Volume 90, Mean Corpuscular Hemoglobin 30, Mean Corpuscular Hemoglobin Concent 33, Red Cell Distribution Width 13.3, Platelet Count 301, Mean Platelet Volume 9.1, Sodium Level 137, Potassium Level 4.4, Chloride Level 103, Carbon Dioxide Level 25, Anion Gap 9, Blood Urea Nitrogen 12, Creatinine 0.79, Estimat Glomerular Filtration Rate 97, BUN/Creatinine Ratio 15, Glucose Level 195H, Calcium Level 9.2, Corrected Calcium 9.8, Total Bilirubin 1.0, Aspartate Amino Transf (AST/SGOT) 19, Alanine Aminotransferase (ALT/SGPT) 21, Alkaline Phosphatase 101, Total Protein 6.2L, Albumin 3.3 07/18/23 11:03: Glucometer 345H Microbiology 07/15/23 Blood Culture - Preliminary, Resulted 07/15/23 Urine Culture - Final, Complete NO GROWTH Radiology Chest XRay: There is no radiographic evidence of acute cardiopulmonary process. Assessment/Plan Assessment/Plan (1) UTI (urinary tract infection) Status: Acute Assessment & Plan: - WBC count of 12 upon admission - UA showed 3+ protein, 1+ leukocyte esterase, 3+ RBC, WBC TNTC, and moderate bacteria. - Lactic acid level of 2.2. Repeat levels were .97. - Patient was originally started on cefuroxime on 07/11 for suspected UTI. - Switched antibiotic from cefuroxime to IV cefepime on admission - Transitioned to oral ciprofloxacin 500mg BID for 5 days. Last day on 07/21 - No growth on urine cultures or blood cultures Qualifiers: Qualified Codes: N30.01 - Acute cystitis with hematuria (2) Urinary retention Status: Acute Assessment & Plan: - Patient had bladder US done with 400ml of postvoid residual. - This could be secondary to side effect from TURP procedure patient recently had performed vs urinary stricture vs UTI vs residual BPH - Franco catheter inserted on 07/15. - Discontinued franco catheter. Patient is continuing to have around 200-300mL of urine on postvoid residuals. 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 - Pressure dressing applied - Cardiology has cleared patient Qualifiers: Qualified Codes: S20.212A - Contusion of left front wall of thorax, initial encounter (5) Wheelchair dependent Status: Chronic Assessment & Plan: - Patient is wheelchair dependent due to uncontrolled diabetes mellitus type II - He is very weak is struggling to perform tasks in hospital - PT and OT were consulted. PT said that he required maximum assistance on everything. OT said he is not strong enough to go home at this time. (6) Sacral decubitus ulcer Status: Chronic Assessment & Plan: - History of LE neuropathy secondary to uncontrolled T2DM leading to wheelchair dependance. - Lactic acid level of 2.2. Repeat levels were .97. - Leukocytosis present on admission has resolved - Continue with wound care for sacral ulcer and monitor for signs of systemic infection (7) Genital candidiasis in male Status: Chronic Assessment & Plan: - Using topical miconazole powder (8) HTN (hypertension) Status: Chronic Assessment & Plan: - Patient was started on lisinopril on 07/05 and this was subsequently switched to losartan due to possible dry cough associated with lisinopril. - Continue TELEGRAPH REPEATER INSTALLER losartan Qualifiers: Qualified Codes: I10 - Essential (primary) hypertension (9) HLD (hyperlipidemia) Status: Chronic Assessment & Plan: - Continue TELEGRAPH REPEATER INSTALLER atorvastatin Qualifiers: Qualified Codes: E78.5 - Hyperlipidemia, unspecified (10) Hyperbilirubinemia Status: Resolved Assessment & Plan: - Bilirubin level of .6 on 07/05 and 1.1 on 07/15 - Bilirubin levels normalized to .9 on 07/16 LUZ MARINA LOMELI MD 07/18/23 9980: Supervisory-Addendum Brief Supervisory Addendum I personally performed or re-performed the history, physical exam and treatment for the E/M. I discussed the case with the Medical Student, and concur with the Medical Student documentation of history, physical exam and treatment plan unless otherwise noted. Awaiting SNF placement. SNEHA WHITTAKER Jul 18, 2023 12:41 LUZ MARINA LOMELI MD Jul 18, 2023 17:53
[2023-07-18 15:52] VITALS: BP 113/60
[2023-07-18] MEDS ORDERED: ENOXAPARIN 40 MG/0.4 ML SYRINGE SQ SCH (18:30)
[2023-07-18 19:33] VITALS: BP 116/62
[2023-07-18] MEDS: BENZOCAINE LOZENGES 1 EACH PO PRN (20:02)
[2023-07-19] VITALS: BP 121/53
[2023-07-19 03:58] VITALS: BP 113/54
[2023-07-19] MEDS: metFORMIN 500 MG TABLET PO SCH (06:03)
[2023-07-19] MEDS: inSUlin ASPART 1 UNIT/0.01 ML (PER UNIT) SC SCH ×2 (07:27→11:56)
[2023-07-19 07:41] VITALS: BP 111/56
[2023-07-19] MEDS: MICONAZOLE 2% CREAM 30 GM TP SCH (09:28)
[2023-07-19] MEDS: GABAPENTIN 300 MG CAPSULE PO SCH (09:28)
[2023-07-19] MEDS: CIPROFLOXACIN 500 MG TABLET PO SCH (09:28)
[2023-07-19] MEDS: TAMSULOSIN 0.4 MG (FLOMAX) CAP PO SCH (09:28)
[2023-07-19] MEDS: MICONAZOLE 2% POWDER 90 GM TOP SCH (09:28)
[2023-07-19] MEDS: LOSARTAN 25 MG TABLET PO SCH (09:28)
--- NOTE | 2023-07-19 10:13 | Physical Therapy Daily Note ---
PT Daily Note-Current Subjective Patient agrees to PT. Pain Section J - Health Conditions 1. Rarely or not at all 2. Occasionally 3. Frequently 4. Almost constantly 8. Unable to answer Pain Effect on Sleep: 1 Pain Interference with Therapy: 1 Pain Interference w/Day-to-Day: 1 Transfers SCALE: Activities may be completed with or without assistive devices. 5-Qdjzmwqhnk-hirxurt completes the activity by him/herself with no assistance from a helper. 5-Set-up or Clean-up Assistance-helper sets up or cleans up; patient completes activity. [place] assists only prior to or following the activity. 4-Supervision or Touching Assistance-helper provides verbal cues and/or touching/steadying and/or contact guard assistance as patient completes activity. Assistance may be provided throughout the activity or intermittently. 3-Partial/Moderate Assistance-helper does LESS THAN HALF the effort. [place] lifts, holds or supports trunk or limbs, but provides less than half the effort. 2-Substantial/Maximal Assistance-helper does MORE THAN HALF the effort. [place] lifts or holds trunk or limbs and provides more than half the effort. 1-Pdpkbsvyw-xzthws does ALL the effort. Patient does none of the effort to complete the activity. Or, the assistance of 2 or more helpers is required for the patient to complete the activity. If activity was not attempted, code reason: 7-Patient Refused. 9-Not Applicable-not attempted and the patient did not perform the activity before the current illness, exacerbation or injury. 10-Not Attempted due to Environmental Limitations-(lack of equipment, weather restraints, etc.). 88-Not Attempted due to Medical Conditions or Safety Concerns. Lying to Sitting/Side of Bed(Q: 4 Sit to Stand (QC): 2 Chair/Uyh-ik-Rjfgb Xfer(QC): 2 Toilet Transfer (QC): 2 Weight Bearing Right Lower Extremity: Right Weight Bearing/Tolerated Left Lower Extremity: Left Weight Bearing/Tolerated Gait Training Does the Patient Walk?: No and Walking Goal NOT indicated Assessment Patient incontinent urine and BM. Max assist to perform sit to stand and SPT to recliner and commode. Patient becomes agitated with inability to utilize left UE due to pacemaker placement. Continue to increase activity as tolerated by patient. PT Nursing Home Goals Thread Grinder Tool Goals PT Thread Grinder Tool Goals Time Frame: Aug 03, 2023 Roll Left & Right (QC): 6 Sit to Lying (QC): 6 Lying-Sitting on Side/Bed(QC): 6 Sit to Stand (QC): 4 Chair/Qwp-up-Qfhjn Xfer(QC): 4 Toilet Transfer (QC): 4 Does the Patient Walk: No and Walking Goal NOT indicated PT Plan Treatment/Plan Treatment Plan: Continue Plan of Care Treatment Plan: Bed Mobility, Education, Functional Activity Estelita, Functional Strength, Group Therapy, Gait, Safety, Therapeutic Exercise, Transfers Treatment Duration: Aug 03, 2023 Frequency: 5 times per week Estimated Hrs Per Day: .25 hour per day Time Time In: 954 Time Out: 1004 DATE: Jul 19, 2023 Total Billed Treatment Time: 10 Total Billed Treatment 1 visit FA 10 min DARLIN HAMMONDS PT Jul 19, 2023 10:13
--- NOTE | 2023-07-19 10:43 | Occupational Ther Daily Note ---
OT Current Status-Daily Note Subjective On arrival patient is urine saturated w/ skin integrity risk on scrotum Mental Status/Objective Patient Orientation: Person, Place, Time, Situation ADL-Treatment OT strongly educated patient on skin integrity issues w/ acidic urine, moist surfaces and longevity of remaining on PU areas. OT instructed patient on HEP and mobility strategies of LLE. for ADLS Therapy Code Descriptions/Definitions Functional [place] Measure: 0=Not Assessed/NA 4=Minimal Assistance 1=Total Assistance 5=Supervision or Setup 2=Maximal Assistance 6=Modified [place] 3=Moderate Assistance 7=Complete IndependenceSCALE: Activities may be completed with or without assistive devices. 8-Comytsvudn-zszzufz completes the activity by him/herself with no assistance from a helper. 5-Set-up or Clean-up Assistance-helper sets up or cleans up; patient completes activity. [place] assists only prior to or following the activity. 4-Supervision or Touching Assistance-helper provides verbal cues and/or touching/steadying and/or contact guard assistance as patient completes activity. Assistance may be provided throughout the activity or intermittently. 3-Partial/Moderate Assistance-helper does LESS THAN HALF the effort. [place] lifts, holds or supports trunk or limbs, but provides less than half the effort. 2-Substantial/Maximal Assistance-helper does MORE THAN HALF the effort. [place] lifts or holds trunk or limbs and provides more than half the effort. 4-Algalhezz-ydzwox does ALL the effort. Patient does none of the effort to complete the activity. Or, the assistance of 2 or more helpers is required for the patient to complete the activity. If activity was not attempted, code reason: 7-Patient Refused. 9-Not Applicable-not attempted and the patient did not perform the activity before the current illness, exacerbation or injury. 10-Not Attempted due to Environmental Limitations-(lack of equipment, weather restraints, etc.). 88-Not Attempted due to Medical Conditions or Safety Concerns. Eating (QC): 6 Oral Hygiene (QC): 5 Bathing Location: L Upper Leg, R Upper Leg, Perineal Area Shower/Bathe Self (QC): 5 (sponge) Upper Body Dressing (QC): 4 Lower Body Dressing (QC): 2 On/Off Footwear: 4 Toileting Hygiene (QC): 2 Toilet Transfer (QC): 2 (REcliner to [facility] [place] for BM. PAtietn performed 3 transfer fromn bed to recliner. Does not sustain PPM precautions.) Please consult w/ chrome plater helper for PPM precaution guidelines for expiring Education OT Patient Education: Correct positioning, Exercise program, Modified ADL techniques, Progress toward Goal/Update tx plan, Purpose of tx/functional activities, Reviewed precautions, Rehab process, Safety issues, Transfer techniques, Use of adapted equipment Teaching Recipient: Patient Teaching Methods: Demonstration, Discussion Response to Teaching: Reinforcement Needed OT Director Of Psychiatry Goals Snf Goals Time Frame: Jul 22, 2023 Eating (QC): 6 Oral Hygiene (QC): 6 Toileting Hygiene (QC): 6 Shower/Bathe Self (QC): 5 Upper Body Dressing (QC): 6 Lower Body Dressing (QC): 6 On/Off Footwear (QC): 6 1=Demonstrate adherence to instructed precautions during ADL tasks. 2=Patient will verbalize/demonstrate understanding of assistive devices/modifications for ADL. 3=Patient will improve strength/tolerance for activity to enable patient to perform ADL's. OT Education/Plan Problem List/Assessment Assessment: Decreased Activ Tolerance, Decreased Safety Aware, Decreased UE Strength, Impaired Cognition, Impaired Coordination, Impaired Funct Balance, Impaired Self-Care Skills, Restricted Funct UE ROM Discharge Recommendations Plan/Recommendations: Continue POC Therapy Discharge Recommendati: Post Acute OT Treatment Plan/Plan of Care Treatment,Training & Education: Yes Patient would benefit from OT for education, treatment and training to promote independence in ADL's, mobility, safety and/or upper extremity function for ADL's. Plan of Care: ADL Retraining, Concurrent Therapy, Functional Mobility, Group Exercise/Act as Ind, UE Funct Exercise/Act Treatment Duration: Jul 22, 2023 Frequency: 3 times per week (3-5 times per week) Estimated Hrs Per Day: .25 hour per day Agreement: Yes Rehab Potential: Fair Patient remains up on BSC w/ call light in reach, bed linens removed d/t BM on linens and pads. PCT notified Time Start Time: 09:54 Stop Time: 10:10 DATE: Jul 19, 2023 Total Time Billed (hr/min): 16 Billed Treatment Time ADL 16 min GABBI BERTRAND OT Jul 19, 2023 10:43
--- NOTE | 2023-07-19 11:24 | Discharge Inst-Skilled Nursing ---
Discharge Inst-Skilled NF Reconcile Patient Problems Problems Reviewed?: Yes Consult/Follow Up/Orders Skilled NF Admit to: [facility] I certify that SNF services are required to be given on an inpatient basis because of the above named patient's need for jail care on a continuing basis for the conditions(s) for which he/she was receiving inpatient hospital services prior to his/her transfer to the SNF. Alf Facility Order: Nursing Services, Physical Therapy-Evaluate & Treat, Wound Care-Eval/Treat Oxygen Delivery Method: Room Air Discharge Diet: ADA Diet Daily Activity as Tolerated: Yes Resuscitation Status: Full Code Discharge Medications New, Converted or Re-Newed RX: Transmitted to Pharmacy New Medications: Ciprofloxacin HCl (Ciprofloxacin HCl) 500 Mg Tablet 500 MG PO BID for 2 Days, #4 TAB 0 Refills Continued Medications: Atorvastatin Calcium (Atorvastatin Calcium) 80 Mg Tablet 80 MG PO DAILY, TAB Gabapentin (Neurontin) 300 Mg Capsule 300 MG PO DAILY, TAB Losartan Potassium (Losartan Potassium) 25 Mg Tablet 25 MG PO DAILY, TAB Metformin HCl (Metformin HCl) 1,000 Mg Tablet 1000 MG PO DAILY, TAB Tamsulosin HCl (Flomax) 0.4 Mg Cap 0.4 MG PO DAILY, CAP Discontinued Medications: Cefuroxime Axetil (Cefuroxime) 500 Mg Tablet 500 MG PO BID, TAB FILLED 07-11-2023 #14/7 DAY SUPPLY Luz Marina Monson Jul 19, 2023 11:24 LUZ MARINA MONSON MD Jul 19, 2023 11:24
[2023-07-19] MEDS ORDERED: CIPR500T5 PO (11:27)
[2023-07-19 12:04] VITALS: BP 132/73
[2023-07-19 12:20] VITALS: BP 132/73
--- NOTE | 2023-07-19 13:55 | Discharge Summary ---
SNEHA WHITTAKER 07/19/23 1355: Diagnosis/Chief Complaint Date of Admission Jul 15, 2023 at 10:38 Date of Discharge Admission Diagnosis Admission Diagnosis Hematoma over anterior chest wall Discharge Diagnosis Hematoma over anterior chest wall and UTI Problems/Diagnosis: (1) UTI (urinary tract infection) Assessment & Plan: - WBC count of 12 upon admission - UA showed 3+ protein, 1+ leukocyte esterase, 3+ RBC, WBC TNTC, and moderate bacteria. - Continue oral ciprofloxacin 500mg BID for 5 days. Last day of treatment will be 07/21 Qualifiers: Qualified Codes: N30.01 - Acute cystitis with hematuria Status: Acute (2) Urinary retention Assessment & Plan: - Patient had bladder US done with 400ml of postvoid residual. - This could be secondary to side effect from TURP procedure patient recently had performed vs urinary stricture vs UTI vs residual BPH - Patient had franco catheter inserted during hospital stay. It was removed and he continued to have around 200-300mL of urine on postvoid residuals. - Patient feels comfortable with his urination. Recommend follow-up with urology as an outpatient Status: Acute (3) Uncontrolled diabetes mellitus Assessment & Plan: - Continue CEMETERY KEEPER Metformin - Have patient follow-up with PCP about elevated glucose levels during inpatient stay Qualifiers: Qualified Codes: E11.65 - Type 2 diabetes mellitus with hyperglycemia Status: Chronic (4) Hematoma of left chest wall Assessment & Plan: - Hematoma around pacemaker site, cleaned around site, steri strips still in tact, no active bleeding at this time. - Pressure dressing applied - Cardiology has cleared patient Qualifiers: Qualified Codes: S20.212A - Contusion of left front wall of thorax, initial encounter Status: Resolved Resolution Date/Time: 07/17/23 @ 14:49 (5) Wheelchair dependent Assessment & Plan: - Patient is wheelchair dependent due to uncontrolled diabetes mellitus type II - He is very weak is struggling to perform tasks in hospital - Patient is being discharged to SNF to increase strength before going home Status: Chronic (6) Sacral decubitus ulcer Assessment & Plan: - History of LE neuropathy secondary to uncontrolled T2DM leading to wheelchair dependance. - Continue with wound care for sacral ulcer Status: Chronic (7) HTN (hypertension) Assessment & Plan: - Patient was started on lisinopril on 07/05 and this was subsequently switched to losartan due to possible dry cough associated with lisinopril. - Continue CEMETERY KEEPER losartan Qualifiers: Qualified Codes: I10 - Essential (primary) hypertension Status: Chronic (8) HLD (hyperlipidemia) Assessment & Plan: - Continue CEMETERY KEEPER atorvastatin Qualifiers: Qualified Codes: E78.5 - Hyperlipidemia, unspecified Status: Chronic (9) Hyperbilirubinemia Assessment & Plan: - Bilirubin level of .6 on 07/05 and 1.1 on 07/15 - Bilirubin levels normalized to .9 on 07/16 Status: Resolved Resolution Date/Time: 07/16/23 @ 13:15 (10) Genital candidiasis in male Status: Resolved Resolution Date/Time: 07/19/23 @ 13:54 Chief Complaint/HPI Chief Complaint/HPI Patient presented to ED with weakness, dizziness, and bleeding over his pa cemaker site. He had a PPM placed on July 05 due to complete heart block. He is unsure of when the bleeding and bruising started. Of note, patient was seen in Dr. Mcbride's office for f/u on 07/11/23, PPM site at that time was D/D/I without erythema or drainage. He did have low grade fever at the time with questionable UTI and was started on Ceftin. Endorses generalized malaise, myalgia, a few days of nonbloody diarrhea, urinary and fecal incontinence, and a month long cough. Denies chest pain, soa, abdominal pain, or nausea/vomiting. Brief ED Course: Patient had slight leukocytosis of 12. Platelets were increased at 428. Glucose high at 219. CRP increased at 2.01. Initial lactic acid was high at 2.2 with repeat lactic acid of .97. Chest X-Ray showed no radiographic evidence of acute cardiopulmonary process. UA showed 3+ protein, 1+ leukocyte esterase, WBC TNTC, moderate bacteria, and 3+ RBC. Discharge Summary-Simple/Stand Consultations Discharge Physical Examination Allergies: Coded Allergies: No Known Drug Allergies (Unverified , 05/09/21) Vitals & I&Os Vital Sign - Last 12Hours Date Time Temp Pulse Resp B/P (MAP) Pulse Ox O2 Delivery O2 Flow Rate FiO2 07/19/23 12:04 36.7 89 16 132/73 (92) 98 Room Air Intake and Output 07/19/23 00:00 Intake Total 1742 ml Output Total 800 ml Balance 942 ml General Appearance: Alert, Oriented X3, Cooperative, No Acute Distress HEENT: Atraumatic Respiratory: Other (Expiratory rhonchi) Cardiovascular: Regular Rate, Normal S1, Normal S2, No Murmurs Abdominal: Normal Bowel Sounds, Soft, No Tenderness, No Hepatosplenomegaly, No Masses Extremities: No Clubbing, No Cyanosis, No Edema, Normal Pulses, No Tenderness/Swelling, Other (Bilateral lower extremity knee abrasions) Skin: Other (Sacral ulcer. Bilateral LE abrasions. Bruising over anterior chest wall on left side.) Neuro: Normal Speech Psych/Mental Status: Mental Status NL, Mood NL Hospital Course Was the Problem List Reviewed?: Yes See problem list Radiology Reviewed Chest XRay: There is no radiographic evidence of acute cardiopulmonary process. Discharge Instructions to patient/family Please see electronic discharge instructions given to patient. Discharge Medications Reviewed and agree with Discharge Medication list on patient's Discharge Instruction sheet LUZ MARINA LOMELI MD 07/19/23 1600: Discharge Summary-Simple/Stand Discharge Physical Examination Allergies: Coded Allergies: No Known Drug Allergies (Unverified , 05/09/21) Supervisory-Addendum Brief Supervisory Addendum I personally performed or re-performed the history, physical exam and treatment for the E/M. I discussed the case with the Medical Student, and concur with the Medical Student documentation of history, physical exam and treatment plan unless otherwise noted. SNEHA WHITTAKER Jul 19, 2023 13:55 LUZ MARINA LOMELI MD Jul 19, 2023 16:00
== END 2023-07-19 12:29 ==
LOC: EDUNIT# 08:27 → ER 08:29 → 4TH 10:38
PROVIDERS: ADMIT Family Medicine; ATTEND Family Medicine
DX: N30.01 Acute cystitis with hematuria (principal); R33.9 Retention of urine, unspecified; E11.65 Type 2 diabetes mellitus with hyperglycemia; S20.212A Contusion of left front wall of thorax, initial encounter; E11.622 Type 2 diabetes mellitus with other skin ulcer; L98.429 Non-pressure chronic ulcer of back with unspecified severity; I10 Essential (primary) hypertension; E78.5 Hyperlipidemia, unspecified; E80.6 Other disorders of bilirubin metabolism; I44.2 Atrioventricular block, complete; E11.40 Type 2 diabetes mellitus with diabetic neuropathy, unspecified; G72.9 Myopathy, unspecified; R53.81 Other malaise; B37.49 Other urogenital candidiasis; F17.210 Nicotine dependence, cigarettes, uncomplicated; Z99.3 Dependence on wheelchair; Z79.899 Other long term (current) drug therapy
CPT/HCPCS: 36415; 51701; 71045; 80053; 81000; 82947; 83605; 83690; 83735; 84484; 85025; 85027; 85610; 85730; 86141; 86850; 86900; 86901; 87040; 87088; 87636; 93005; 96366; 96372; 96376